=== PATIENT | female | born 1945 | race Caucasian/White ===

== ENCOUNTER → 2016-08-29 | Outpatient (CLI) | payer MEDICARE ==
[~2016-08-29] MED LIST: ALBUTEROL2.5 MG/0.5 INH; ALENDRONATE SOD70 MG PO; ALPHAGAN P 5 ML5 M1 OPH; ASPIRIN CHEWABL81 MG PO; ATIVAN0.5 MG PO; ATIVAN1 MG PO; ATORVASTATIN CA20 M1 PO; AUGMENTIN 875875 MG PO; AVPAK AZITHROM250 M1 PO; BETIMOL5 M1 OU; BISACODYL LAXATI5 MG PO; BREO ELLIPTA 21 EACH IH; BRIMONIDINE TAR10 ML OPH; BRIN10TA PO; CALCIUM CARBON500 M1 PO; CATAPRES T0.3 MG/24 TD; CHLORASEPTIC MM; CIPRO250 MG PO; CIPRO500 MG PO; CLINDAMYCIN150 MG PO; CLONIDINE HYDR0.1 MG PO; CLONIDINE0.2 MG PO; CYMBALTA30 MG PO; CYMBALTA60 MG PO; Clonidine HCl0.3 MG PO; DELTASONE20 M1 PO; DOLOPHINE5 MG PO; DOXYCYCLINE MO100 M1 PO; DULCOLAX100 MG PO; DULE1ARO INH; DULOXETINE HCL60 MG PO; DUONEB 3 MG/3 ML3 M1 INH; DUONEB 3 MG/3 ML3 M1 NEB; DUONEB 3ML 3 MG/3 ML INH; Duoneb 3ML 3 MG/3 ML INH; ENDOCET 650 MG-1 TA1 PO; EXELON9.5 MG/24 T; GABAPENTIN TAB600 MG PO; GABAPENTIN800 MG PO; GLIPIZIDE2.5 MG PO; HUMALOG100 U/ML SC; INCRUSE EL62.5 MCG/A IH; K-TAB10 MEQ PO; KLOR-CON 88 MEQ PO; LASIX20 MG PO; LEVAQUIN750 M1 PO; LEVAQUIN750 MG PO; LEVOFLOXAC750 MG/150 IV; LIPITOR40 MG PO; LORAZEPAM0.5 MG PO; LORAZEPAM1 MG PO; MAPAP325 MG PO; MILK OF MA400 MG/52 PO; MUCINEX600 MG PO; NEURONTIN600 MG PO; NUCYNTA ER100 M1 PO; OMEPRAZOLE20 M2 PO; OMEPRAZOLE20 MG PO; OMEPRAZOLE40 MG PO; OXYCODONE AND A1 TA3 PO; OXYCODONE20 MG PO; OXYGEN NAS; PAMELOR75 MG; PAMELOR75 MG PO; PERCOCET 325 MG1 TA6 PO; PERCOCET 325 MG1 TA7 PO; PERCOCET 325 MG1 TA8 PO; PREDNISONE10 MG PO; PRILOSEC20 M2 PO; PRILOSEC20 MG PO; PRILOSEC40 MG PO; PROAIR HFA0.09 MG/AC INH; RISPERDAL CONST25 MG IM; RISPERDAL0.5 MG PO; RISPERDAL1 M1 PO; RISPERDAL2 M1 PO; SANTYL250 U/GM T; SIMVASTATIN40 MG PO; SYMBICORT1 AE1 INH; TIMOLOL MALEAT2.5 M1 OPH; TOPAMAX15 M1 PO; TOPAMAX15 MG PO; TRAD5TAB1 PO; TRAVATAN 0.0042.5 M1 OU; TRAVATAN Z 2.52.5 ML OPH; TYLENOL325 M1 PO; VENTOLIN 02.5 MG/3 M INH; VENTOLIN H0.09 MG/AC INH; VIBRAMYCIN100 MG PO; VIT D; VITAMIN D22000 UNIT PO; VITAMIN D5000 I3 PO; VITAMIN D50000 I3 PO; Ventolin 02.5 MG/3 M INH; ZANTAC 150150 MG PO; ZITHROMAX Z PA250 MG PO; [UNRECOGNIZED DRUG - OTHER] PO
== END | disposition home or self-care (01) ==
LOC: LAB 16:30
DX: J41.1 Mucopurulent chronic bronchitis (principal); R07.81 Pleurodynia; R30.0 Dysuria; R68.89 Other general symptoms and signs; R06.02 Shortness of breath

== ENCOUNTER → 2016-09-02 | Outpatient (CLI) | payer MEDICARE ==
[2016-09-02 13:55] LABS: BILIRUBIN NEGATIVE (NEGATIVE); BLOOD NEGATIVE (NEGATIVE); CLARITY SL CLOUDY (CLEAR); COLOR YELLOW (YELLOW); GLUCOSE NEGATIVE (NEGATIVE); KETONE NEGATIVE (NEGATIVE); LEUKO ESTERASE 1+ (NEGATIVE); NITRITE NEGATIVE (NEGATIVE); PH 5.5 (5.0-9.0); PROTEIN NEGATIVE (NEGATIVE); UROBILINOGEN 0.2 E.U./dl (0.2-1.0)
== END | disposition home or self-care (01) ==
LOC: LAB 13:18
PROVIDERS: Family Medicine
DX: R30.0 Dysuria (principal); R68.89 Other general symptoms and signs

== ENCOUNTER 2017-02-07 17:26 | Inpatient (IN) | payer MEDICARE ==
[~2017-02-07] VITALS: Ht 170.2 cm; Wt 115.3 kg
--- NOTE | ~2017-02-07 | CON ---
[place], [place] REPORT OF CONSULTATION NAME: MERRY GARCIA UNIT #: [id number] ROOM: 526 DOCTOR: TOBIAS HANNAH MD BIRTHDATE: [birth year] DOS: 02/14/2017 PSYCHIATRIC CONSULTATION CHIEF COMPLAINT: "I'm so much better, thank you so much." SUMMARY OF THE VISIT: The patient was interviewed in her room. She greeted me with a smile and engaged readily in conversation, reporting that she no longer is experiencing the visual and auditory hallucinations that she had been upon admission. She was much more conversant and was able to be spontaneous and carry on a reasonable conversation, which is a eagle contrast to my earlier consult. The patient medically is much more stable, which has subsequently caused her psychiatric symptoms to resolve. She reports her only issue is occasionally having a bad dream that wakes her up, other than that she convincingly denies depression, psychosis or per. She also convincingly denies medication side effects. MENTAL STATUS: The patient is alert and oriented with mild time gaps. Mood does seem to be strongly trending towards euthymia. Affect is more appropriate. There is no per or hypomania. There are no overt auditory or visual hallucinations, delusions or paranoia. Short-term memory has mild gaps. FINAL DIAGNOSES: Major depression, recurrent with psychotic features. PLAN: I will make a small adjustment with her nighttime Seroquel, raising the dose from 50 to 100 mg at bedtime, maintain her other psychotropics. The patient is good to be discharged at this point and follow up in the office with one of the nurse practitioners. TOBIAS HANNAH MD CM:CONSTR:REPORT OF CONSULTATION [id number] 02/15/17 0635 interface
--- NOTE | ~2017-02-07 | CON ---
[place], [place] REPORT OF CONSULTATION NAME: MERRY GARCIA UNIT #: [id number] ROOM: 521 DOCTOR: TOBIAS HANNAH MD BIRTHDATE: [birth year] DOS: 02/09/2017 CHIEF COMPLAINT: "Oh, I'm so glad to see you." HISTORY OF PRESENT ILLNESS: This is a 71-year-old white female who is well known to me from my private practice in [place] as well as a previous psychiatric admission to the Behavioral Health Care Unit. She is admitted now due to COPD and increased shortness of breath as well as increased confusion. Per her report, she has noticed that she is also experiencing both auditory and visual hallucinations and has been progressively more confused. Her daughter who was present in the room endorses the same symptoms and states that she oftentimes will catch her mother having conversations with unforeseen others and that she at times talks completely out of her head. These behaviors have continued to get worse over the last several weeks. She also notices that she has become more disoriented and confused and is concerned for her decline. PAST MEDICAL HISTORY: Remarkable for chronic pain, COPD, diabetes, fibromyalgia, glaucoma, hypertension, hyperlipidemia, obesity, and vitamin D deficiency. MENTAL STATUS: She is alert and oriented to person, place, but not time. She reports to me that she has been in the hospital for 3 days. Some of her responses are very short, superficial and at times inappropriate. DIAGNOSIS: Major depression, recurrent; Alzheimer dementia. PLAN: I will check a serum ammonia level as well as a gabapentin level in the morning. I will start her on Exelon patch 4.6 mg daily. Given the prominent hallucinations, I will start her on Seroquel 50 mg at bedtime. She had previously been on Risperdal long-term, but developed significant tremor and extrapyramidal symptoms, so this was discontinued approximately 4-5 months ago. The Seroquel has a very low risk of extrapyramidal symptoms and tardive. She also endorses poor sleep, so this should also aid her sleep pattern. I did talk to family about the possibility of transferring her to the psychiatric unit if she quickly medically stabilizes and her hallucinations persist and they are both in agreement that this would be okay. TOBIAS HANNAH MD CM:CONSTR:REPORT OF CONSULTATION 1013 02/10/17 0317 interface
[~2017-02-07 17:26] MED LIST changes: +Bactroban Oint22 GM T
[2017-02-07 17:36] VITALS: BP 155/70
[2017-02-07 18:17] LABS: BASO # 0.1 10*3/uL (0.0-0.1); BASO % 1.5 % (0.0-1.0); EOS # 0.3 10*3/uL (0.0-0.4); HEMATOCRIT 38.6 % (37.0-47.0); HEMOGLOBIN 11.9 g/dl (12.0-16.0); LYMPH # 1.4 10*3/uL (1.3-4.4); LYMPH % 19.9 % (27.0-41.0); MEAN CELL VOLUME 88.9 fl (81.0-99.0); MEAN CORPUSCULAR HGB 27.4 pg (27.0-31.0); MEAN CORPUSCULAR HGB CONC 30.8 g/dl (33.0-37.0); MEAN PLATELET VOLUME 10.8 fl (9.6-12.3); MONO # 0.8 10*3/uL (0.1-1.0); MONO % 11.1 % (3.0-9.0); NEUT # 4.3 10*3/uL (2.3-7.9); NEUT % 62.5 % (47.0-73.0); PLATELET COUNT AUTOMATED 226 10*3/uL (130-400); RED BLOOD COUNT 4.34 10*6/uL (4.10-5.10); RED CELL DISTRI WIDTH 14.8 % (0-14.5); WHITE BLOOD COUNT 6.8 10*3/uL (4.8-10.8)
[2017-02-07 18:27] LABS: ACT PARTIAL THROMBO TIME 24.1 SECONDS (20.8-31.5); INTERNATIONAL NORM RATIO 0.9 (2.0-3.5)
[2017-02-07 18:32] LABS: ALBUMIN 3.7 gm/dl (3.1-4.5); ALKALINE PHOSPHATASE 121 U/L (45-117); BUN 8 mg/dl (7-24); CHLORIDE 103 mmol/L (98-107); CREATININE 1.02 mg/dL (0.55-1.02); LIPASE 97 U/L (73-393); MAGNESIUM 2.2 mg/dL (1.5-2.1); POTASSIUM 4.2 mmol/L (3.5-5.1); SGOT/AST 26 IU/L (3-35); SGPT/ALT 22 U/L (12-78); SODIUM 140 mmol/L (136-145); TOTAL PROTEIN 7.5 gm/dL (6.4-8.2)
[2017-02-07 18:33] LABS: TROPONIN I < 0.015 ng/ml (<0.045)
[2017-02-07 19:45] LABS: BILIRUBIN NEGATIVE (NEGATIVE); BLOOD NEGATIVE (NEGATIVE); CLARITY CLEAR (CLEAR); COLOR YELLOW (YELLOW); GLUCOSE NEGATIVE (NEGATIVE); KETONE NEGATIVE (NEGATIVE); LEUKO ESTERASE NEGATIVE (NEGATIVE); NITRITE NEGATIVE (NEGATIVE); PH 7.5 (5.0-9.0); UROBILINOGEN 0.2 E.U./dl (0.2-1.0)
[2017-02-07 19:52] LABS: BACTERIA 2+; EPITHELIAL CELLS 16-20; RBC 0-2 rbc/hpf (0-2)
[2017-02-07 20:39] VITALS: BP 179/62
[2017-02-07 21:17] VITALS: BP 158/58
--- NOTE | 2017-02-07 22:07 | NUR ---
ADVISED BY NURSE ANTITANK ASSAULT GUNNER TO WAIT TO GIVE REPORT UNTIL STAFFING NEEDS MET
[2017-02-07 23:09] VITALS: BP 151/73
[2017-02-07 23:52] VITALS: BP 185/86
--- NOTE | 2017-02-08 01:29 | NUR ---
REPORT GIVEN TO TORRIE SPRING
[2017-02-08 01:45] VITALS: BP 161/65
--- NOTE | 2017-02-08 01:45 | NUR ---
Time: 144 A 71 year old female admitted to 5E under services of JOSELIN ARIZMENDI DO. Pt. arrived via stretcher from ER. Chief complaint: confusion hallucinating... started last night , getting worse per family brought her to ER. pulse ox 88% on her home O2. cough productive yellow. c/o difficulty urinating last night. . Pt. voided on admission. bed changed. IV in left arm intact and asympt. WILLIAM DE LUNA
--- NOTE | 2017-02-08 02:29 | NUR ---
PT. DOES NOT KNOW ALL HER MEDICATIONS MEDICATION LIST NEEDS VERIFIED.
[2017-02-08 06:48] LABS: BASO % 0.3 % (0.0-1.0); EOS % 0.2 % (1.0-4.0); HEMATOCRIT 37.5 % (37.0-47.0); HEMOGLOBIN 11.7 g/dl (12.0-16.0); LYMPH # 0.7 10*3/uL (1.3-4.4); LYMPH % 11.9 % (27.0-41.0); MEAN CELL VOLUME 87.6 fl (81.0-99.0); MEAN CORPUSCULAR HGB 27.3 pg (27.0-31.0); MEAN CORPUSCULAR HGB CONC 31.2 g/dl (33.0-37.0); MEAN PLATELET VOLUME 11.2 fl (9.6-12.3); MONO # 0.1 10*3/uL (0.1-1.0); NEUT # 5.1 10*3/uL (2.3-7.9); NEUT % 85.6 % (47.0-73.0); PLATELET COUNT AUTOMATED 197 10*3/uL (130-400); RED BLOOD COUNT 4.28 10*6/uL (4.10-5.10); RED CELL DISTRI WIDTH 14.8 % (0-14.5)
[2017-02-08 07:18] LABS: ACT PARTIAL THROMBO TIME 24.1 SECONDS (20.8-31.5)
[2017-02-08 07:29] LABS: CHLORIDE 103 mmol/L (98-107); FREE T4 1.01 ng/dl (0.76-1.46); POTASSIUM 3.7 mmol/L (3.5-5.1); SODIUM 140 mmol/L (136-145)
[2017-02-08 07:42] LABS: ALBUMIN 3.7 gm/dl (3.1-4.5); ALKALINE PHOSPHATASE 118 U/L (45-117); BUN 9 mg/dl (7-24); CHOLESTEROL 214 mg/dL (<200); CREATININE 0.91 mg/dL (0.55-1.02); HDL CHOLESTEROL 82 mg/dl (40-60); LDL CHOLESTEROL 119 mg/dL (9-159); SGOT/AST 16 IU/L (3-35); SGPT/ALT 18 U/L (12-78); TOTAL PROTEIN 7.2 gm/dL (6.4-8.2); TRIGLYCERIDES 67 mg/dl (<150); VLDL CHOLESTEROL 13 mg/dL (6-40)
[2017-02-08 07:51] LABS: VITAMIN D, 25-HYDROXY 41.7 ng/mL (30-100)
[2017-02-08 08:00] VITALS: BP 154/59
--- NOTE | 2017-02-08 09:00 | NUR ---
case management visits with patient, patient states she lives at home with her daughter, but hasn't been getting around too well lately, discussed with her a short term [facility]p and patient wanted case management to talk with her daughter, corporate event planner will contact patient's daughter regarding discharge plans
--- NOTE | 2017-02-08 09:15 | NUR ---
MEDICATED WITH PRN PO NORCO FOR HEAD/CHEST/FEET/KNEES PAIN, STATES RIGHT LEG HURTS MORE THAN LEFT LEG; ALSO PRN PO ROBITUSSIN AC FOR NONPRODUCTIVE COUGH AND CHEST DISCOMFORT.
--- NOTE | 2017-02-08 10:16 | NUR ---
OBTAININING FAXED LIST OF MEDS FROM [facility].
--- NOTE | 2017-02-08 10:30 | NUR ---
PRN PO ROBITUSSIN AC AND NORCO SOMEWHAT EFFECTIVE, PER PATIENT.
--- NOTE | 2017-02-08 10:38 | NUR ---
DR. HANNAH NOTIFIED OF CONSULT RE: HALLUCINATIONS.
[2017-02-08] MEDS ORDERED: TRAD5TAB1 PO (10:46)
[2017-02-08] MEDS ORDERED: LIPITOR20 MG PO (10:46)
[2017-02-08] MEDS ORDERED: GLIPIZIDE XL2.5 M1 PO (10:46)
[2017-02-08] MEDS ORDERED: PERCOCET 10-321 EACH PO (10:47)
[2017-02-08] MEDS ORDERED: CYMBALTA30 MG PO (10:47)
[2017-02-08] MEDS ORDERED: NEURONTIN600 MG PO ×2 (10:48→10:49)
[2017-02-08] MEDS ORDERED: ATIVAN0.5 MG PO (10:48)
[2017-02-08] MEDS ORDERED: COREG3.125 MG PO (10:50)
[2017-02-08] MEDS ORDERED: OMEPRAZOLE40 MG PO (10:50)
[2017-02-08] MEDS ORDERED: CLONIDINE HCL0.1 MG PO (10:51)
[2017-02-08] MEDS ORDERED: ASPIRIN81 M1 PO (10:53)
[2017-02-08] MEDS ORDERED: BETIMOL5 M1 OU (10:53)
--- NOTE | 2017-02-08 10:54 | NUR ---
MED REC UPDATED/CORRECTED USING INFORMATION FAXED FROM [facility].
[2017-02-08 12:00] VITALS: BP 134/71
--- NOTE | 2017-02-08 12:30 | NUR ---
assistant media planner called and spoke with daughter. She stated she moved her mother in with them several months ago and has everything she needs in place to care for her. She would like her to return home upon discharge. Denies any other needs at this time
[2017-02-08 16:00] VITALS: BP 187/68
--- NOTE | 2017-02-08 18:20 | NUR ---
MEDICATED WITH PRN PO PERCOCET FOR C/O GENERALIZED BODY PAIN.
[2017-02-08 18:39] VITALS: BP 171/66
[2017-02-08 20:00] VITALS: BP 160/78
--- NOTE | 2017-02-08 21:15 | NUR ---
PATIENT REQUESTED AND RECEIVED PRN RESTORIL FOR C/O INSOMNIA. SHE IS LYING IN BED. ONLY C/O GEN PAIN WHICH SHE DID NOT WANT MEDICATED FOR. RESPIRATIONS EASY/REG. 02 DEP ON 3L NC. TUBI REPORTING COORDINATOR IN PLACE TO BLE. FLUIDS MAINTAINED PER ORDER. CALL LIGHT IS IN REACH.
[2017-02-09] VITALS: BP 157/69
--- NOTE | 2017-02-09 00:15 | NUR ---
PATIENT REQUESTED AND RECEIVED PRN ATIVAN ORDERED FOR C/O RESTLESSNESS.
--- NOTE | 2017-02-09 02:47 | NUR ---
SLEEPING. NO SXS OF DISTRESS. CALL LIGHT IN REACH.
[2017-02-09 04:00] VITALS: BP 110/74
[2017-02-09 08:00] VITALS: BP 161/80
[2017-02-09 12:00] VITALS: BP 144/48
[2017-02-09 16:00] VITALS: BP 136/70
[2017-02-09 20:00] VITALS: BP 155/85
--- NOTE | 2017-02-09 20:02 | NUR ---
Medicated with Percocet po prn for generalized body discomfort. Will monitor effectiveness. Call light within reach.
--- NOTE | 2017-02-09 21:00 | NUR ---
Patient resting quietly in bed with eyes closed. Percocet effective. Will continue to monitor. Call light within reach.
[2017-02-10] VITALS: BP 157/55
--- NOTE | 2017-02-10 00:29 | NUR ---
24 HR chart check completed.
[2017-02-10 08:00] VITALS: BP 160/78
[2017-02-10] MEDS ORDERED: CEFUROXIME AXE500 MG PO (09:44)
[2017-02-10] MEDS ORDERED: PREDNISONE10 MG PO (09:45)
--- NOTE | 2017-02-10 10:33 | NUR ---
SPOKE WITH U REGARDING BED FOR PT, THEY STATE THEY DON'T HAVE ANY FEMALE BEDS AVAILABLE AT THIS TIME. UPDATED DR SCHULER REGARDING THIS.
[2017-02-10 12:00] VITALS: BP 161/79
--- NOTE | 2017-02-10 15:06 | NUR ---
SPOKE WITH DR BARAKAT REGARDING NO BED AVAILABLE AT [facility], STATED D/C WILL BE ON HOLD UNTIL BED IS AVAILABLE.
--- NOTE | 2017-02-10 15:31 | NUR ---
DR BARAKAT NOTIFIED OF PT'S POSITIVE URINE CULTURE AND IT'S RESISTENT TO LEVAQUIN, QUESTIONED IF HE WANTED THE CEFUROXIME ORDERED AN IN PATIENT MED, STATED HE WOULD ORDER IT.
[2017-02-10 16:00] VITALS: BP 150/73
--- NOTE | 2017-02-10 17:03 | NUR ---
MEDICATED WITH PERCOCET PER PRN ORDER FOR GENERALIZED BODY ACHES. WILL MONITOR FOR EFFECTIVENESS.
--- NOTE | 2017-02-10 17:18 | NUR ---
SPOKE WITH DR HARINI PATRICK IV LEVAQUIN ORDER, IF HE WOULD LIKE PT TO REMAIN ON THAT WELL THE CEFTIN, STATES HE WILL D/C THE LEVAQUIN.
--- NOTE | 2017-02-10 18:36 | NUR ---
PT STATED PERCOCET WAS EFFECTIVE FOR PAIN RELIEF. PT RESTING COMFORTABLY.
--- NOTE | 2017-02-10 19:26 | NUR ---
SPOKE TO AT THIS TIME REGARDING ORDER FOR FLUIDS. INSTRUCTED TO DISCONTINUE FLUIDS.
[2017-02-10 20:00] VITALS: BP 156/89
--- NOTE | 2017-02-10 20:15 | NUR ---
PATIENT AWAKE IN BED AT THIS TIME. NO COMPLAINTS VOICED. WILL MONITOR. CALL LIGHT LEFT IN REACH.
[2017-02-11] VITALS: BP 120/60
--- NOTE | 2017-02-11 03:58 | NUR ---
PATIENT ASLEEP IN BED AT THIS TIME. RESPIRATIONS EASY. NO S/S OF DISTRESS NOTED. CALL LIGHT LEFT IN REACH.
[2017-02-11 08:00] VITALS: BP 160/70
--- NOTE | 2017-02-11 08:00 | NUR ---
SHIFT ASSESSMENT COMPLETED. BED IN LOW POSITION. CALL LIGHT WITHIN REACH. NO COMPLAINTS VOICED AT THIS TIME.
[2017-02-11] MEDS ORDERED: LEVAQUIN500 M2 PO (08:37)
--- NOTE | 2017-02-11 08:45 | NUR ---
Shift chart check completed.
[2017-02-11 12:00] VITALS: BP 154/90
--- NOTE | 2017-02-11 13:37 | NUR ---
ONE PERCOCET GIVEN PER PATIENT REQUEST FOR RIGHT SIDED PAIN RATING 10/10 AND FOR GENERALIZED PAIN.
--- NOTE | 2017-02-11 14:00 | NUR ---
PATIENT SLEEPING. NO SIGNS OF PAIN. PERCOCET EFFECTIVE.
[2017-02-11 16:00] VITALS: BP 186/64
[2017-02-11 20:00] VITALS: BP 150/82
--- NOTE | 2017-02-11 20:00 | NUR ---
ASSUMED CARE OF PATIENT. ASSESSMENT COMPLETE. RESTING IN BED. CALL LIGHT IN REACH. WILL CONTINUE TO MONITOR.
--- NOTE | 2017-02-11 20:59 | NUR ---
MEDICATED WITH PRN PERCOCET FOR C/O PAIN "ALL OVER" RATES 02/21.
[2017-02-12] VITALS: BP 151/78
--- NOTE | 2017-02-12 02:00 | NUR ---
SLEEPING. RESP EASY AND NONLABORED ON 2L NC. NO DISTRESS NOTED. CALL LIGHT IN REACH. WILL CONTINUE TO MONITOR.
[2017-02-12 07:00] LABS: HEMATOCRIT 34.8 % (37.0-47.0); LYMPH # 0.8 10*3/uL (1.3-4.4); LYMPH % 15.4 % (27.0-41.0); MEAN CELL VOLUME 85.9 fl (81.0-99.0); MEAN CORPUSCULAR HGB 27.2 pg (27.0-31.0); MEAN CORPUSCULAR HGB CONC 31.6 g/dl (33.0-37.0); MONO # 0.4 10*3/uL (0.1-1.0); MONO % 6.6 % (3.0-9.0); NEUT # 4.1 10*3/uL (2.3-7.9); NEUT % 77.1 % (47.0-73.0); PLATELET COUNT AUTOMATED 177 10*3/uL (130-400); RED BLOOD COUNT 4.05 10*6/uL (4.10-5.10); RED CELL DISTRI WIDTH 14.7 % (0-14.5); WHITE BLOOD COUNT 5.3 10*3/uL (4.8-10.8)
[2017-02-12 07:27] LABS: ALBUMIN 3.1 gm/dl (3.1-4.5); ALKALINE PHOSPHATASE 78 U/L (45-117); BUN 23 mg/dl (7-24); CHLORIDE 100 mmol/L (98-107); CREATININE 0.91 mg/dL (0.55-1.02); PHOSPHOROUS 3.5 mg/dL (2.5-4.9); POTASSIUM 3.7 mmol/L (3.5-5.1); SGOT/AST 9 IU/L (3-35); SGPT/ALT 20 U/L (12-78); SODIUM 138 mmol/L (136-145); TOTAL PROTEIN 6.2 gm/dL (6.4-8.2)
--- NOTE | 2017-02-12 07:29 | NUR ---
Shift chart check completed.
[2017-02-12 08:00] VITALS: BP 162/86
--- NOTE | 2017-02-12 08:00 | NUR ---
BED IN LOW POSITION. CALL LIGHT WITHIN REACH. VOICED NO CONCERNS AT THIS TIME.
[2017-02-12 12:00] VITALS: BP 164/88
--- NOTE | 2017-02-12 13:34 | NUR ---
NOTIFIED DAUGHTER OF ROOM CHANGE.
[2017-02-12 14:00] VITALS: BP 164/88
--- NOTE | 2017-02-12 17:44 | NUR ---
ONE PERCOCET GIVEN PER PATIENT REQUEST FOR LOWER BACK PAIN RATING A 10/10.
[2017-02-12 20:00] VITALS: BP 125/67
[2017-02-13] VITALS: BP 117/75
--- NOTE | 2017-02-13 02:00 | NUR ---
SLEEPING. RESP EASY AND NONLABORED ON 2.5L NC. NO DISTRESS NOTED. BED ALARM ON. CALL LIGHT IN REACH. WILL CONTINUE TO MONITOR.
[2017-02-13 08:00] VITALS: BP 152/74
[2017-02-13 12:00] VITALS: BP 132/66
--- NOTE | 2017-02-13 12:33 | NUR ---
PHYSICAL THERAPY PAtient evaluated on 5, full evaluation to follow. Continue with PT as per plan of care with fall, 02 and acute debility precautions. Family refuses SNF, will require home with 05/12 family assist and home health complete services. PAtient is modeate compleixyt via chart review, tests and evaaltuion: [id number] Thank you for this referral. Jeanne Golden,PT
--- NOTE | 2017-02-13 12:52 | NUR ---
Occupational Therapy evaluation completed on 5 with full eval to follow. PRecautions include fall risk, O2 dependency, WW use, SOB w/ ease of movement, anxiety, obesity, moderate complexity level 58058. Recommend OT per POC and home health OT,PT,SN upon d/c to enable improved ADL performance and max functional mobility. Thank you for this referral. Jasmin Silva OTR/l
[2017-02-13 16:00] VITALS: BP 198/81
--- NOTE | 2017-02-13 16:36 | NUR ---
PERCOCET FOR BILAT KNEE PAIN PT AAOX3, COOPERATIVE. MAKES OWN DECISIONS AND WILLING TO GO TO [facility]
[2017-02-13 17:00] VITALS: BP 160/76
--- NOTE | 2017-02-13 17:58 | NUR ---
PAIN PILL MODERATELY EFFECTIVE FOR KNEE PAIN RELIEF
[2017-02-13 20:00] VITALS: BP 151/88
--- NOTE | 2017-02-13 20:00 | NUR ---
ASSUMED CARE OF PATIENT. ASSESSMENT COMPLETE. RESTING IN BED. NO VOICED COMPLAINTS. CALL LIGHT IN REACH. BED ALARM ON. WILL CONTINUE TO MONITOR.
[2017-02-14] VITALS: BP 164/73
[2017-02-14 00:04] LABS: NEURONTIN (GABAPENTIN) 15.3 ug/mL (4.0-16.0)
--- NOTE | 2017-02-14 02:00 | NUR ---
SLEEPING. RESP EASY AND NONLABORED ON 2.5L NC. NO DISTRESS NOTED. BED ALARM ON. CALL LIGHT IN REACH. WILL CONTINUE TO MONITOR.
[2017-02-14 08:00] VITALS: BP 146/73
--- NOTE | 2017-02-14 08:00 | NUR ---
PATIENT RESTING WITH NO DISTRESS.
--- NOTE | 2017-02-14 10:00 | NUR ---
AM MEDS TAKEN.
--- NOTE | 2017-02-14 10:04 | NUR ---
PHYSICAL THERAPY Pt having breakfast this first therapy visit. ALEJANDRINA ECKERT PACKING LINE WORKER.
[2017-02-14 12:00] VITALS: BP 129/83
[2017-02-14] MEDS ORDERED: RIVASTIGMINE1 EACH T (12:23)
[2017-02-14] MEDS ORDERED: QUETIAPINE FUM100 M3 PO (12:23)
[2017-02-14] MEDS ORDERED: PREDNISONE10 MG PO (12:23)
--- NOTE | 2017-02-14 15:30 | NUR ---
HEP LOCK REMOVED FOR DISCHARGE. Discharge instructions reviewed with patient/family. Patient receptive and verbalizes understanding. Follow-up care arranged. Written instructions given to patient/family. SARAH MCFARLANE
--- NOTE | 2017-02-16 08:08 | NUR ---
PHYSICAL THERAPY CO-SIGN I approve of the Phyical Therapy notes written above. SERGO JASMINE PT
== END 2017-02-14 15:30 | disposition home or self-care (01) | DRG 871 ==
LOC: ED 17:26 → EDHOLD 20:29 → 5E 20:29 → ICCU 20:54 → 5E 22:03
PROVIDERS: Emergency Medicine; Hospitalist; Internal Medicine Hospice and Palliative Medicine; Psychiatry & Neurology Psychiatry; ADMIT Internal Medicine
DX: A41.9 Sepsis, unspecified organism (principal); J18.9 Pneumonia, unspecified organism; J96.21 Acute and chronic respiratory failure with hypoxia; J44.1 Chronic obstructive pulmonary disease with (acute) exacerbation; J44.0 Chronic obstructive pulmonary disease with (acute) lower respiratory infection; F33.3 Major depressive disorder, recurrent, severe with psychotic symptoms; I16.1 Hypertensive emergency; F02.80 Dementia in other diseases classified elsewhere, unspecified severity, without behavioral disturbance, psychotic disturbance, mood disturbance, and anxiety; B96.4 Proteus (mirabilis) (morganii) as the cause of diseases classified elsewhere; G30.9 Alzheimer's disease, unspecified; E78.00 Pure hypercholesterolemia, unspecified; M79.7 Fibromyalgia; G89.29 Other chronic pain; D64.9 Anemia, unspecified; F41.1 Generalized anxiety disorder; I10 Essential (primary) hypertension; E66.9 Obesity, unspecified; H40.9 Unspecified glaucoma; E55.9 Vitamin D deficiency, unspecified; E11.65 Type 2 diabetes mellitus with hyperglycemia; Z99.81 Dependence on supplemental oxygen; Z79.82 Long term (current) use of aspirin; Z79.899 Other long term (current) drug therapy; Z68.39 Body mass index [BMI] 39.0-39.9, adult; Z79.84 Long term (current) use of oral hypoglycemic drugs

== ENCOUNTER 2017-03-08 17:08 | Inpatient (IN) | payer MEDICARE ==
[~2017-03-08] VITALS: Ht 167.6 cm; Wt 93.1 kg
[~2017-03-08 17:08] MED LIST changes: +ASPIRIN81 M1 PO; +CEFUROXIME AXE500 MG PO; +CLONIDINE HCL0.1 MG PO; +COREG3.125 MG PO; +GLIPIZIDE XL2.5 M1 PO; +LEVAQUIN500 M2 PO; +LIPITOR20 MG PO; +PERCOCET 10-321 EACH PO; +QUETIAPINE FUM100 M3 PO; +RIVASTIGMINE1 EACH T
[2017-03-08 17:12] VITALS: BP 108/52
[2017-03-08 18:00] LABS: BASO % 0.7 % (0.0-1.0); EOS # 0.2 10*3/uL (0.0-0.4); EOS % 4.7 % (1.0-4.0); HEMATOCRIT 37.7 % (37.0-47.0); HEMOGLOBIN 11.3 g/dl (12.0-16.0); LYMPH # 1.6 10*3/uL (1.3-4.4); LYMPH % 35.2 % (27.0-41.0); MEAN CELL VOLUME 91.3 fl (81.0-99.0); MEAN CORPUSCULAR HGB 27.4 pg (27.0-31.0); MEAN PLATELET VOLUME 10.4 fl (9.6-12.3); MONO # 0.6 10*3/uL (0.1-1.0); MONO % 13.4 % (3.0-9.0); NEUT % 45.3 % (47.0-73.0); PLATELET COUNT AUTOMATED 172 10*3/uL (130-400); RED BLOOD COUNT 4.13 10*6/uL (4.10-5.10); RED CELL DISTRI WIDTH 15.9 % (0-14.5); WHITE BLOOD COUNT 4.5 10*3/uL (4.8-10.8)
[2017-03-08 18:20] LABS: ALBUMIN 3.3 gm/dl (3.1-4.5); ALKALINE PHOSPHATASE 108 U/L (45-117); BUN 10 mg/dl (7-24); CHLORIDE 99 mmol/L (98-107); CREATININE 0.98 mg/dL (0.55-1.02); POTASSIUM 3.8 mmol/L (3.5-5.1); SGOT/AST 23 IU/L (3-35); SGPT/ALT 31 U/L (12-78); SODIUM 141 mmol/L (136-145); TOTAL PROTEIN 6.9 gm/dL (6.4-8.2)
[2017-03-08 18:21] LABS: TROPONIN I < 0.015 ng/ml (<0.045)
--- NOTE | 2017-03-08 18:49 | NUR ---
PT RESTING QUIETLY WITH HER EYES CLOSED, DAUGHTER AT THE BEDSIDE. TOADOL EFFECTIVE.
[2017-03-08 19:02] LABS: BILIRUBIN NEGATIVE (NEGATIVE); BLOOD NEGATIVE (NEGATIVE); CLARITY SL CLOUDY (CLEAR); COLOR YELLOW (YELLOW); GLUCOSE NEGATIVE (NEGATIVE); KETONE NEGATIVE (NEGATIVE); LEUKO ESTERASE NEGATIVE (NEGATIVE); NITRITE NEGATIVE (NEGATIVE); PH 5.5 (5.0-9.0); SPECIFIC GRAVITY >= 1.030 (1.005-1.030); UROBILINOGEN 0.2 E.U./dl (0.2-1.0)
[2017-03-08 19:15] LABS: BACTERIA 2+; EPITHELIAL CELLS 25-30; WBC 21-30 wbc/hpf (0-5)
[2017-03-08 19:48] VITALS: BP 119/49
--- NOTE | 2017-03-08 19:56 | NUR ---
PATIENT ALERT AND ORIENTED STATES BREATHING BETTER AFTER BREATHING TX AND MEDS, IN LOW FOWLERS LUNGS WITH BILAT EXP WHEEZE
--- NOTE | 2017-03-08 20:35 | NUR ---
ADMITTING DR CARLOS VO TO HOLD LEVAQUIN IV UNTIL BLOOD CULTURES THAT HAVE JUST BEEN ORDERED ARE BACK,
--- NOTE | 2017-03-08 20:46 | NUR ---
PATIENT ADMITTED TO 5E PT DNRCC, PT ALERT AND ORIENTED AWAITING TO HAVE BLOOD CULTURES DRAWN BEFORE TRANSPORT TO
--- NOTE | 2017-03-08 20:55 | NUR ---
CALLED TO GIVE REPORT TO 4E, SAID THEY WOULD CALL BACK WITHIN 5 MIN
--- NOTE | 2017-03-08 21:05 | NUR ---
PATIENT REPORT GIVEN TO ANNELISE SPRING, PT NOW GOING TO CT BEFORE TRANSPORT TO
[2017-03-08 21:35] VITALS: BP 121/44
--- NOTE | 2017-03-08 21:35 | NUR ---
RN COULD NOT VALIDATE PT HOME MEDICATIONS AT THIS TIME BECAUSE THE PT WAS UNABLE TO IDENTIFY HOME MEDS.
--- NOTE | 2017-03-08 22:00 | NUR ---
BLADDERSCAN PT PER MD REQUEST WAS FOUND TO HAVE 160CC OF FLUID. STRAIGHT CATH PT PER MD REQUEST FOR UC. PT TOLERATED PROCEDURE WELL
[2017-03-08 22:17] LABS: BILIRUBIN NEGATIVE (NEGATIVE); BLOOD NEGATIVE (NEGATIVE); CLARITY CLEAR (CLEAR); COLOR YELLOW (YELLOW); GLUCOSE NEGATIVE (NEGATIVE); KETONE NEGATIVE (NEGATIVE); LEUKO ESTERASE NEGATIVE (NEGATIVE); NITRITE NEGATIVE (NEGATIVE); PH 5.5 (5.0-9.0); SPECIFIC GRAVITY >= 1.030 (1.005-1.030); UROBILINOGEN 0.2 E.U./dl (0.2-1.0)
[2017-03-08 22:30] LABS: BACTERIA 2+; WBC 0-2 wbc/hpf (0-5)
--- NOTE | 2017-03-08 22:49 | NUR ---
Time: 2134 A 71 year old FEMALE admitted to 4E under services of MEERA ISSA DO. Pt. arrived via CART from ED ER. Chief complaint: SHAKINESS, UNABLE TO URINATE. HALLUCINATIONS. GLADYS ARTEAGA
[2017-03-09] VITALS: BP 125/52
[2017-03-09 06:09] LABS: BASO % 0.2 % (0.0-1.0); EOS % 0.2 % (1.0-4.0); HEMATOCRIT 34.4 % (37.0-47.0); HEMOGLOBIN 10.9 g/dl (12.0-16.0); LYMPH # 0.6 10*3/uL (1.3-4.4); LYMPH % 12.6 % (27.0-41.0); MEAN CELL VOLUME 88.4 fl (81.0-99.0); MEAN CORPUSCULAR HGB CONC 31.7 g/dl (33.0-37.0); MEAN PLATELET VOLUME 10.5 fl (9.6-12.3); MONO # 0.1 10*3/uL (0.1-1.0); NEUT # 4.1 10*3/uL (2.3-7.9); NEUT % 85.2 % (47.0-73.0); NUCLEATED RED BLOOD CELL 0.4 % (0.0-0.0); PLATELET COUNT AUTOMATED 171 10*3/uL (130-400); RED BLOOD COUNT 3.89 10*6/uL (4.10-5.10); RED CELL DISTRI WIDTH 15.5 % (0-14.5); WHITE BLOOD COUNT 4.8 10*3/uL (4.8-10.8)
[2017-03-09 06:47] LABS: BUN 11 mg/dl (7-24); CHLORIDE 99 mmol/L (98-107); CREATININE 0.95 mg/dL (0.55-1.02); PHOSPHOROUS 2.5 mg/dL (2.5-4.9); SODIUM 138 mmol/L (136-145)
[2017-03-09 07:43] LABS: VITAMIN D, 25-HYDROXY 34.6 ng/mL (30-100)
[2017-03-09 08:00] VITALS: BP 131/83
--- NOTE | 2017-03-09 08:00 | NUR ---
ASSISTED TO BR WITH WALKER, 2 ASSIST. PT TOLERATED WELL. VOIDED & HAD A NORMAL COLORED BM. RETUNED TO CHAIR WITH BODYALARM IN USE FOR PT SAFETY. SEE SHIFT ASSESSMENT.
--- NOTE | 2017-03-09 09:00 | NUR ---
Stereotype Finisher in to talk to patient. Patient states lives at home with daughter. There are no steps in the home. Physician: rossy peñaloza [facility]acy: [facility] Home health services: none Patient's level of ADLs: MODERATE ASSIST Patient has working utilities: all working DME: walker Follow-up physician's appointment after d/c: will be made by [facility] nurse director upon discharge Does patient want to access PORTAL?: no Discharge plan discussed with patient patient lives at home with her daughter, states she hasn't been getting around very well, discussed with her a short term prison and patient was in agreement, patient wanted case management to also discuss this with her daughter, town planner will contact patient's daughter and see which facility to refer patient to. GRAY YAÑEZ
--- NOTE | 2017-03-09 10:58 | NUR ---
In to see patient to discuss discharge plans. Patient stated she is going home with her daughter. Called daughter Barbara and spoke with a "male" at the house who stated Barbara is at work right now and the plan is for this patient to return home. They have everything they need at home to care for her. Asked if patient will need any VNA, they stated no they didn't think so. Will follow
[2017-03-09 12:00] VITALS: BP 135/71
[2017-03-09] MEDS ORDERED: NEURONTIN600 MG PO (12:50)
--- NOTE | 2017-03-09 12:57 | NUR ---
HOME MEDICATIONS UPDATED WITH RAMON GONG, DR SMART MADE AWARE.
[2017-03-09 16:00] VITALS: BP 135/54
--- NOTE | 2017-03-09 16:42 | NUR ---
PHYSICAL THERAPY EVALUATION COMPLETED. PATIENT RESTING/SLEEPING UPON MY ARRIVAL BUT EASILY AROUSED. PATIENT NASAL CANULA AT HER LEFT EAR AND SHE WAS UNAWARE IT WAS NOT DONNED PROPERLY AND REQUIRED ASSISTANCE FOR PROPPER DONNING. BED MOBILITY LIGHT CGA/SBA; TRANSFERS IN/OUT OF BED LIGHT CGA/SBA. GAIT WITH WALKER AND CLOSE SBA X 20 WITH EXTREMELY SLOW SHERRY/PACE ALTHOUGH STEADY. CONSTANT GRUNTING TYPE NOISE. PATIENT DENIED PAIN AT ANY TIME DURING THIS SESSION. PATIENT HAS GENERALIZED WEAKNESS AND SOB WITH MINIMAL EXERSION WHICH LIMIT FUNCTIONAL MOBILITY. PATIENT WAS ID BY NAME AND . PATIENT IS ALERT; ORIENTED TO PERSON, PLACE, NOT TIME. PATIENT WOULD BENEFIT FROM SNF TO IMPROVE SAFE, FUNCTIONAL MOBILITY TO EVENETUALLY RETURN HOME WITH HER DAUGHTER. PATIENT REQUIRES 24/7 SUPERVISION D/T COGNITIVE DEFICITS. CONTINUE PT FOR GAIT, ENDUARNCE, BREATHING TECHNIQUES AND FUNCTIONAL MOBILITY TRAINING. MODERATE COMPLEXITY PT EVALUATION D/T LENGHTY PMH, CHAT REVIEW AND VIST TIME INCLUDING TESTING. THANK YOU FOR THIS REFERRAL, JUJU SIERRA, PT
--- NOTE | 2017-03-09 16:42 | NUR ---
MEDICATED PO ORDERED PER PT REQUEST WITH NORCO FOR C/O BILATERAL LEG PAIN. SEE EMAR. PT UNABLE TO RATE PAIN.
--- NOTE | 2017-03-09 17:26 | NUR ---
MEDICATED PO ORDERED PER PT REQUEST WITH ATIVAN FOR INCREASED ANXIETY. SEE EMAR.
--- NOTE | 2017-03-09 18:48 | NUR ---
PT STATES MEDICATION EFFECTIVE IN RELIEVING DISCOMFORT & ANXIETY. DOZING INTERMITTENTLY.
[2017-03-09 20:00] VITALS: BP 102/53
--- NOTE | 2017-03-09 22:00 | NUR ---
PT COMPLAINS OF BACK PAIN 5/10 MEDICATED WITH GOOD EFFECT SEE EMAR.
[2017-03-10] VITALS: BP 110/68
[2017-03-10 06:45] LABS: BASO % 0.1 % (0.0-1.0); HEMATOCRIT 31.8 % (37.0-47.0); LYMPH # 0.6 10*3/uL (1.3-4.4); LYMPH % 9.5 % (27.0-41.0); MEAN CELL VOLUME 87.4 fl (81.0-99.0); MEAN CORPUSCULAR HGB 27.5 pg (27.0-31.0); MEAN CORPUSCULAR HGB CONC 31.4 g/dl (33.0-37.0); MEAN PLATELET VOLUME 11.1 fl (9.6-12.3); MONO # 0.3 10*3/uL (0.1-1.0); MONO % 3.9 % (3.0-9.0); NEUT # 5.8 10*3/uL (2.3-7.9); NEUT % 85.8 % (47.0-73.0); PLATELET COUNT AUTOMATED 195 10*3/uL (130-400); RED BLOOD COUNT 3.64 10*6/uL (4.10-5.10); WHITE BLOOD COUNT 6.7 10*3/uL (4.8-10.8)
[2017-03-10 07:08] LABS: ALBUMIN 3.2 gm/dl (3.1-4.5); ALKALINE PHOSPHATASE 84 U/L (45-117); BUN 13 mg/dl (7-24); CHLORIDE 103 mmol/L (98-107); CREATININE 0.83 mg/dL (0.55-1.02); POTASSIUM 3.9 mmol/L (3.5-5.1); SGOT/AST 13 IU/L (3-35); SGPT/ALT 26 U/L (12-78); SODIUM 142 mmol/L (136-145); TOTAL PROTEIN 6.1 gm/dL (6.4-8.2)
[2017-03-10 08:00] VITALS: BP 123/76
--- NOTE | 2017-03-10 08:00 | NUR ---
SLEEPING, AROUSES EASILY WITH NO VOICED C/O OFFERED. EASY RESPIRATIONS WITH SKIN W/D. SEE SHIFT ASSESSMENT.
--- NOTE | 2017-03-10 09:00 | NUR ---
case management visits with patient, patient states she will be going home with family and denies any home needs
--- NOTE | 2017-03-10 11:00 | NUR ---
MEDICATED PO ORDERED PER PT REQUEST WITH NORCO 1 TAB FOR C/O BILATERAL LEG PAIN. PT RATES PAIN 5/10. SEE EMAR. PT OOB TO CHAIR, LEGS ELEVATED.
--- NOTE | 2017-03-10 11:53 | NUR ---
PHYSICAL THERAPY Pt was seen this AM 1:1 X 2 and sleeping sound will stop back later. ALEJANDRINA ECKERT LITHOGRAPHIC PROOFER.
--- NOTE | 2017-03-10 11:54 | NUR ---
PHYSICAL THERAPY Stopped back in to see Mrs Marquez and Pt was up in her bedside chair. Transfer sit/stand X 3, with MOD EXECUTIVE CYBER LEADER X 1, up on wheeled walker for standing balance, then gait forward and back to Pt's tolerance X 3, with 3 sitting rest. Pt on 3 L o2 and was starting to get SOB with this. Pt up in her bedside chair, call light, and body alarm on. ALEJANDRINA ECKERT SAMPLE STEAMER.
[2017-03-10 12:00] VITALS: BP 145/82
--- NOTE | 2017-03-10 12:00 | NUR ---
PT STATES MEDICATION EFFECTIVE IN RELIEVING DISCOMFORT. WILL CONTINUE TO MONITOR.
[2017-03-10 16:00] VITALS: BP 130/66
--- NOTE | 2017-03-10 16:42 | NUR ---
OOB TO CHAIR, DTR AT BEDSIDE.
--- NOTE | 2017-03-10 17:30 | NUR ---
NO HALLUCINATIONS NOTED THIS SHIFT.
--- NOTE | 2017-03-10 18:16 | NUR ---
medicated po as ordered per pt request with norco for c/o bilateral lower leg pain. pt rates pain 10/22. see emar.
[2017-03-10 20:00] VITALS: BP 109/58
[2017-03-11] VITALS: BP 124/69
[2017-03-11 08:00] VITALS: BP 148/84
--- NOTE | 2017-03-11 09:06 | NUR ---
PATIENT C/O BILATERAL LEG PAIN. RATES /. NORCO GIVEN PER ORDERS.
--- NOTE | 2017-03-11 10:00 | NUR ---
PATIENT REPORTS GOOD RESULTS WITH PRN
[2017-03-11 12:00] VITALS: BP 124/76
--- NOTE | 2017-03-11 14:32 | NUR ---
NO HALLUCINATIOS NOTED THIS SHIFT
--- NOTE | 2017-03-11 15:30 | NUR ---
ASSUMED CARE OF PT. AT THIS TIME. PT. IS RESTING COMFORTABLY IN CHAIR WITH CALL LIGHT WITHIN REACH AND BODY ALARM ATTACHED. NO S/S OF DISTRESS NOTED RESPERS ARE EASY AND REGULAR, SEE SHIFT ASSESSMENT.
[2017-03-11 16:00] VITALS: BP 139/76
--- NOTE | 2017-03-11 17:47 | NUR ---
PRN NORO GIVEN PER PT. REQUEST WITH C/O ABDOMINAL PAIN. WILL MONITOR EFFECT.
--- NOTE | 2017-03-11 18:10 | NUR ---
PRN NORCO SEEMS EFFECTIVE, PT. DOES NOT VERBALIZE ANY DISCOMFORT, RESPIRATIONS ARE EASY AND REGULAR WITH NO DISTRESS NOTED. WILL CONTINUE TO MONITOR.
[2017-03-11 20:00] VITALS: BP 130/70
[2017-03-12] VITALS: BP 149/79
[2017-03-12 08:00] VITALS: BP 182/80
--- NOTE | 2017-03-12 08:10 | NUR ---
PATIENT IS RESTING COMFORTABLY IN BED AND DRIFTS IN AND OUT OF SLEEP. PATIENT IS HARD OF HEARING, BUT RESPONDS APPROPRIATE TO QUESTIONS. PATIENT DENIES ANY DISCOMFORT OR PAIN AT THIS TIME. PATIENT HAS DYSPNEA ON EXERTION. PATIENT HAS NO FURTHER REQUESTS AT THIS. CALL LIGHT IS WITHIN REACH, BED ALARM IS ACTIVATED, SEE SHIFT ASSESSMENT.
[2017-03-12 12:00] VITALS: BP 160/70
--- NOTE | 2017-03-12 12:26 | NUR ---
PATIENT GIVEN NORCO PER PATIENT REQUEST FOR LEFT KNEE PAIN RATED A 10/10 THAT IS DESCRIBED SHARP AND UNBEARABLE. WILL CONTINUE TO MONITOR AND REASSESS.
--- NOTE | 2017-03-12 12:30 | NUR ---
PATIENT IS RESTING COMFORTABLY IN THE CHAIR. PATIENT HAS HAD NO FURTHER COMPLAINTS OF PAINT AND HAS REMAING AWAKE AND ALERT THROUGHOUT THE DAY. PATIENT IS NON-MONITOR AND HAS THE BODY ALARM ACTIVATED. SEE SHIFT ASSESSMENT. CALL LIGHT IS WITHIN REACH.
--- NOTE | 2017-03-12 13:21 | NUR ---
UPON REASSESSMENT OF LEFT LEG PAIN. PATIENT VERBALIZES THAT THE PAIN FEELS BETTER, BUT STILL RATES PAIN A 7/10. PATIENT HAS NO NON-VERBAL CUES OF PAIN AND IS SITTING IN THE CHAIR WITH LEGS ELEVATED. WILL CONTINUE TO MONITOR.
[2017-03-12 16:00] VITALS: BP 130/84
--- NOTE | 2017-03-12 17:48 | NUR ---
PT C/O BILATERAL LEG PAIN, RATES PAIN 20 PER PT ON SCALE 0-10. MEDICATED WITH NORCO PO PER PRN ORDER, SEE EMAR. CALL LIGHT IN REACH. PT SITTING UP IN RECLINER CHAIR.
--- NOTE | 2017-03-12 19:00 | NUR ---
PATIENT VERBALIZES A DECREASE IN PAIN A 4/10 AND DESCRIBES THE PAIN TOLERABLE. WILL CONTINUE TO MONITOR AND REASSESS
--- NOTE | 2017-03-12 19:01 | NUR ---
PATIENT IS RESTING IN BED. PATIENT VERBALIZES A DECREASE IN PAIN LEVEL RATE A 5/10 AND HAS NO FURTHER COMPLAINTS AT THIS TIME. PATIENT IS ABLE TO AMBULATE WITH WALKER AND ASSIST. PATIENT HAS CALL LIGHT WITHIN REACH. SEE SHIFT ASSESSMENT.
--- NOTE | 2017-03-12 19:30 | NUR ---
PT. IS RESTING COMFORTABLY IN BED AT THIS TIME. HOB IS ELEVATED, WHEELS LOCKED, NASAL CANNULA ATTACHED DELIVERING 3LPM, CALL LIGHT IN REACH. PT. HAS NO C/O OF DISTRESS AT THIS TIME. SEE SHIFT ASSESSMENT.
[2017-03-12 20:00] VITALS: BP 135/84
--- NOTE | 2017-03-12 22:05 | NUR ---
PRN NORCO AND RESTORIL GIVEN AT THIS TIME FOR PT. C/O LEG PAIN AND INSOMNIA. WILL MONITOR EFFECT.
--- NOTE | 2017-03-12 22:45 | NUR ---
PRN NORCO AND RESTORIL SEEM TO BE EFFECTIVE. PT. IS SLEEPING IN BED COMFORTABLY. NASAL CANNULA ATTACHED DELIVERING 3LNC, HOB ELEVATED WITH CALL LIGHT IN REACH. RESPERS ARE EASY AND REGULAR.
[2017-03-13] VITALS: BP 143/89
[2017-03-13 06:25] LABS: HEMATOCRIT 34.8 % (37.0-47.0); HEMOGLOBIN 10.9 g/dl (12.0-16.0); MEAN CELL VOLUME 87.9 fl (81.0-99.0); MEAN CORPUSCULAR HGB 27.5 pg (27.0-31.0); MEAN CORPUSCULAR HGB CONC 31.3 g/dl (33.0-37.0); MEAN PLATELET VOLUME 10.9 fl (9.6-12.3); NUCLEATED RED BLOOD CELL 0.1 10*3/uL (0.0-0.0); NUCLEATED RED BLOOD CELL 0.8 % (0.0-0.0); PLATELET COUNT AUTOMATED 185 10*3/uL (130-400); RED BLOOD COUNT 3.96 10*6/uL (4.10-5.10); RED CELL DISTRI WIDTH 15.9 % (0-14.5); WHITE BLOOD COUNT 7.1 10*3/uL (4.8-10.8)
[2017-03-13 06:50] LABS: CREATININE 0.97 mg/dL (0.55-1.02)
[2017-03-13 07:14] LABS: PLATELET SUFFICIENCY NORMAL (NORMAL); TOTAL CELLS COUNTED 100 #CELLS
[2017-03-13 08:00] VITALS: BP 156/82
--- NOTE | 2017-03-13 08:00 | NUR ---
PATIENT IS UP IN THE CHAIR, HAD ONE EPISODE OF SOB WHEN AMBULATING TO RESTROOM USING WALKER. PATIENT IS RECEIVING 2LPM VIA NC AND HAS NO DYSPNEA AT REST. PATIENT HAS REN HOSE APPLIED AND DENIES ANY PAIN AT THIS TIME, BUT HAS SORENESS IN HER KNEES. PATIENT WAS PLEASANT UPON ASSESSMENT AND GAVE APPROPRIATE RESPONSES TO QUESTIONS. CALL LIGHT IS WITHIN REACH, SEE SHIFT ASSESSMENT.
--- NOTE | 2017-03-13 09:58 | NUR ---
PHYSICAL THERAPY Pavan seen this AM 1:1 for her therapy session and doing better then monday. Pt on 2 L o2, transfer supine/sit MIN A X 1, sitting balance CG X 1, X 4 min, no LOB. Sit/stand and up on wheeled walker standing balance MOD A X 1, one sitting rest on her bed. Followed by gait with wheeled walker 13' X 3, with sitting rest after each gait with W/W and MOD A X 1, verbal cueing for gait, walker safety and turns with getting a little SOB after each gait and needing her sitting rest. Pt up in her bedside chair body alarm on, call light and phone. ALEJANDRINA ECKERT CAR WASH MANAGER.
--- NOTE | 2017-03-13 10:42 | NUR ---
patient was given tylenol per pt request for knee pain and stiffness.
--- NOTE | 2017-03-13 11:02 | NUR ---
Called and spoke with patients daughterBarbara regarding home health. She stated patient has had [facility] in the past and would like to have that set up after discharge. will need new order for nurse/PT prior to discharge. [facility] [phone]
[2017-03-13 12:00] VITALS: BP 147/78
--- NOTE | 2017-03-13 12:16 | NUR ---
TYLENOL PRN WAS EFFECTIVE WITH A REDUCED PAIN LEVEL OF 4/10. WILL CONTINUE TO MONITOR PATIENT.
--- NOTE | 2017-03-13 13:21 | NUR ---
PATIENT IS IN THE BEDSIDE CHAIR. PATIENT HAS BEEN ABLE TO AMBULATE WITH USE OF WALKER AROUND THE ROOM WITHOUT DISTRESS. PATIENT DENIES ANY SEVERE PAIN AT THE TIME. PATIENT IS CHICKEN RANCH AND NEEDS REINFORCEMENT AND CLARIFICATION ON INSTRUCTIONS. SEE SHIFT ASSESSMENT.
[2017-03-13] MEDS ORDERED: PREDNISONE10 MG PO (13:50)
[2017-03-13] MEDS ORDERED: AMINOPHYLLIN200 MG PO (13:50)
[2017-03-13] MEDS ORDERED: ZITHROMAX250 MG PO (13:52)
--- NOTE | 2017-03-13 14:30 | NUR ---
Discharge instructions reviewed with patient/family. Patient receptive and verbalizes understanding. Follow-up care arranged WITH PCP IN 7 DAYS. Written instructions given to patient/family. AL MEDEROS
--- NOTE | 2017-03-13 14:37 | NUR ---
Patient is being discharged to home with home health services requested from [facility]. Received order, contacted agency and faxed referral.
--- NOTE | 2017-03-13 16:00 | NUR ---
ESCORTED OFF THE FLOOR VIA WHEELCHAIR WITH FAMILY AT HER SIDE.
--- NOTE | 2017-03-14 07:53 | NUR ---
PHYSICAL THERAPY CO-SIGN I approve of the Phyical Therapy notes written above. SERGO JASMINE PT
== END 2017-03-13 16:00 | disposition home health service (06) | DRG 189 ==
LOC: ED 17:08 → EDHOLD 20:28 → 4E 20:28
PROVIDERS: Emergency Medicine; Nurse Practitioner; Student in an Organized Health Care Education/Training Program; ADMIT Internal Medicine
DX: J96.21 Acute and chronic respiratory failure with hypoxia (principal); G93.41 Metabolic encephalopathy; I95.9 Hypotension, unspecified; E87.2 Acidosis; E11.8 Type 2 diabetes mellitus with unspecified complications; E44.1 Mild protein-calorie malnutrition; F03.90 Unspecified dementia, unspecified severity, without behavioral disturbance, psychotic disturbance, mood disturbance, and anxiety; Z99.81 Dependence on supplemental oxygen; N39.0 Urinary tract infection, site not specified; F33.9 Major depressive disorder, recurrent, unspecified; J44.1 Chronic obstructive pulmonary disease with (acute) exacerbation; I10 Essential (primary) hypertension; M79.7 Fibromyalgia; K21.9 Gastro-esophageal reflux disease without esophagitis; G89.29 Other chronic pain; E66.9 Obesity, unspecified; F41.9 Anxiety disorder, unspecified; H40.9 Unspecified glaucoma; E78.00 Pure hypercholesterolemia, unspecified; B96.4 Proteus (mirabilis) (morganii) as the cause of diseases classified elsewhere; Z51.5 Encounter for palliative care; Z66 Do not resuscitate; Z87.891 Personal history of nicotine dependence; Z87.440 Personal history of urinary (tract) infections; Z79.82 Long term (current) use of aspirin; Z79.899 Other long term (current) drug therapy; Z68.33 Body mass index [BMI] 33.0-33.9, adult

== ENCOUNTER 2017-04-09 17:19 | Inpatient (IN) | payer MEDICARE ==
[~2017-04-09] VITALS: Ht 167.6 cm; Wt 114.3 kg
--- NOTE | ~2017-04-09 | PR ---
[place], [place] PROGRESS NOTE NAME: MERRY GARCIA UNIT #: [id number] ROOM: 421 DOCTOR: ARSENIO WILLIAMSON MD BIRTHDATE: [birth year] DOS: 04/12/2017 The patient was seen today [id number] encounter. History was confirmed. Physical examination performed. All the available labs were reviewed. Assessed the management the patient for today's visit were personally completed. Note done by the medical advisor was approved. The patient has been comfortably sitting on the chair this morning and noted reduction in symptoms of shortness bed using oxygen supplementation nasal cannula. Mild cough was noted without any sputum expectoration. Denies any wheezing. OBJECTIVE: VITAL SIGNS: Essentially noted normal except blood pressure 158/84. Pulse oxygen saturation on 2 liter nasal cannula was recorded 94% saturation. Intake of 13 and 40 mL, output not documented. LUNGS: Noted with decreased breath sounds in the lungs. Occasional wheezing, no crackles. ABDOMEN: Soft, nontender. EXTREMITIES: Noted reduction of the edema. LABORATORY DATA: CBC: Mild anemia with normal WBC count, otherwise normal. BMP: Glucose 257. Remaining labs were normal. Blood culture from shows no bacterial growth, preliminary at the present time. IMPRESSION: 1. The patient who has been currently noted with general weakness and fatigue with acute exacerbation of chronic obstructive pulmonary disease and bronchial asthma and acute bronchitis, resolving with the treatment. 2. Possibility of superimposed congestive heart failure, diastolic dysfunction. 3. Chronic debility with current acute worsening. PLAN OF MANAGEMENT: Recommended physical therapy and occupational therapy. No other changes in the medical management, plan of treatment with continued to titrate oxygen 92% or greater. Continue current dose of corticosteroids. Usual care, other supportive therapy, plan of management and treatments. [place], [place] PROGRESS NOTE NAME: TACOS GARCIAElisa Jana UNIT #: [id number] ROOM: 421 DOCTOR: ARSENIO WILLIAMSON MD BIRTHDATE: [birth year] ARSENIO ANDERSON MD CM:PNTRANS [id number] ARSENIO WIGGINS MD 04/13/17 0929 interface
--- NOTE | ~2017-04-09 | CON ---
[place], [place] REPORT OF CONSULTATION [id number] UN[facility] #: [id number] ROOM: 421 DOCTOR: ARSENIO WILLIAMSON MD BIRTHDATE: [birth year] DOS: 04/11/2017 PULMONARY CONSULTATION EVALUATION AND MANAGEMENT REASON FOR CONSULTATION: Assess the patient with confusion with acute exacerbation of COPD and others. HISTORY OF PRESENT ILLNESS: This is a 71-year-old white female known with past history of chronic hypoxic respiratory failure, COPD, presented to the hospital as she developed symptoms of increased coughing for the last day or two. She also reported symptoms of shortness of breath. The patient has been brought to the hospital by the patient's daughter. She was also noted with confusional status and hallucinations, which are described intermittently for the past few months. She has been noted with significant past psychiatric history treated with different medications. This morning as the patient was seen, she has been sitting on the chair. She stated her extremities have been swollen and complaining of shortness of breath with cough, but there was no sputum expectoration. Cough is described with mild to moderate frequency with some wheezing. There was no chest pain reported. REVIEW OF SYSTEMS: CONSTITUTIONAL: Somewhat limited; however, the patient reports symptoms of fatigue. Denies any symptoms of fever or chills or change in appetite. EYES: Denies any burning, redness, tenderness. EARS, NOSE, THROAT SYMPTOMS: No sore throat, hoarseness, otalgia, postnasal drainage. Denies any epistaxis. CARDIOVASCULAR: Denies anginal pain, edema or pain of the lower extremity. GASTROINTESTINAL: Denies dysphagia, nausea, vomiting, diarrhea, abdominal pain, hematemesis, melena, hematochezia. MUSCULOSKELETAL: The patient did not report any pain in any joints or redness or tenderness. SKIN: No lesions or rashes. CENTRAL NERVOUS SYSTEM: Denies symptoms of dizziness, headache, diplopia, syncopal episodes. Remaining systems were reviewed. They were noted all negative. PAST MEDICAL HISTORY: Reviewed with the patient last hospitalization on 03/08/2017, treated under the care of hospitalist service, then discharged home on 03/13/2017. She was treated for acute on chronic hypoxic respiratory failure with exacerbation of chronic obstructive pulmonary disease. 1. Centrilobular emphysema. 2. Uncomplicated severe persistent bronchial asthma. 3. Chronic hypoxic respiratory failure, use of oxygen supplementation 2 liters at exertion and sleep. 4. Obstructive sleep apnea disorder. 5. Fibromyalgia. 6. Chronic obesity. 7. Hypercholesterolemia. 8. Essential hypertension. [place], [place] REPORT OF CONSULTATION NAME: MERRY GARCIA UNIT #: [id number] ROOM: 421 DOCTOR: JUSTIN WIGGINS MD,ARSENIO BIRTHDATE: [birth year] 9. Major depression. 10. Alzheimer's disease and dementia. PAST SURGICAL HISTORY: 1. Cholecystectomy. 2. Bladder neck suspension. 3. Removal of stapes of the left ear. 4. Therapeutic bronchoscopy, which was done in 2016. SOCIAL HISTORY: The patient is , has 3 children. Denies any history of alcohol or illicit drug use. She has been noted with tobacco use from age of [age] years old, a pack of cigarettes per day until 2004. There was no history of occupation related pulmonary exposure. FAMILY HISTORY: Father passed at the age of 8080 years old with complication of myocardial infarction. Mother at the age of 8080 years old from complication of an old age. MEDICATIONS: The current administered medication were noted as use of Solu-Medrol 40 mg IV b.i.d., timolol eye drops, Seroquel, Lipitor, vitamin E, clonidine, Coreg, Cymbalta, duloxetine, Trajenta, aspirin, Lovenox for DVT prophylaxis, glipizide, gabapentin, omeprazole, Mucinex, Zithromax and Rocephin. DRUG ALLERGIES: Noted for no known drug allergies. PHYSICAL EXAMINATION: GENERAL: A 71-year-old female who has been currently noted awake and alert for this patient sitting on the chair without any acute distress. Her height was recorded by the nursing staff as height of 5 feet 6 inches, weight of 252 pounds, BMI 40.6. VITAL SIGNS: Normal temperature, respiratory rate recorded as 16-24, heart rate 60-108, blood pressure 142/85-121/71. HEENT: Atraumatic. Eye nonicterus. Severely reduced posterior pharyngeal space. JVD was not elevated. CARDIOVASCULAR: S1, S2 audible without any added sounds. LUNGS: Noted generalized reduced breath sounds bilaterally with expiratory wheezing. No crackles were heard. ABDOMEN: Soft and obese. EXTREMITIES: Shows 1-2+ pitting edema. Currently, has elastic stockings in place. CENTRAL NERVOUS SYSTEM: No gross focal deficit. Cranial nerves 2-12 intact. MUSCULOSKELETAL: No visible deformity. SKIN: The patient does not show any lesions or rashes. LABORATORY DATA: CBC 04/09/2017 on admission, WBC count 3.6, hemoglobin 11.4, hematocrit 35.9, platelet count normal. The lactic acid is 2.6, subsequent is 2.3 on 04/09/2017. CMP of the patient of 04/09/2017, glucose 194, CO2 of 34, remaining electrolytes normal. PT/PTT of the patient on 04/10/2017 was normal. CMP of the patient on 04/10/2017, normal. Urine culture for the patient, no bacterial growth. CBC of the patient of 04/11/2017, mild anemia with normal WBC [place], [place] REPORT OF CONSULTATION NAME: MERRY GARCIA UNIT #: [id number] ROOM: 421 DOCTOR: JUSTIN WIGGINS MDARSENIO BIRTHDATE: [birth year] count at that time. BMP, glucose 236, remaining BMP was normal this morning. Blood culture from 04/09/2017 preliminary, no bacterial growth reported. Final culture results were pending. The chest x-ray of the patient one-view that was done in the Emergency Room on admission was essentially noted clear for any acute pulmonary infiltration, hyperinflation changes of COPD were suspected. IMPRESSION: 1. The patient will be currently admitted to the hospital. The patient at this time was noted with generalized weakness, fatigue with hallucination and acute exacerbation of chronic obstructive pulmonary disease and bronchial asthma with acute bronchitis very likely. 2. Edema of the lower extremities, possibly congestive heart failure, diastolic dysfunction of the patient as well. 3. Chronic obesity with obstructive sleep apnea disorder as well. 4. Type 2 diabetes mellitus, hyperglycemia related to the use of the corticosteroids. PLAN OF MANAGEMENT: The patient will be continued on the bronchodilators and oxygen supplementation. Medical management of hyperglycemia, type 2 diabetes mellitus will be continued. Continue DVT prophylaxis. Continue bronchodilators. No changes in the antibiotic for the patient were recommended. With further progression of the illness certain changes in the medical management will be ordered accordingly. In the meantime, other supportive therapy, plan of management to be continued as well. Usual care. Thanks for allowing me to participate in the care of this patient. ARSENIO ANDERSON MD CM:CONSTR:REPORT OF CONSULTATION 1341 04/12/17 0636 interface
--- NOTE | ~2017-04-09 | PR ---
[place], [place] PROGRESS NOTE NAME: MERRY GARCIA UNIT #: [id number] ROOM: 421 DOCTOR: MAC HODGSON DO BIRTHDATE: [birth year] DOS: 04/12/2017 This progress note is to be attached to the one done by Dr. Anderson. SUBJECTIVE: The patient was evaluated today. She is awake and responsive. She was requesting discharge stating that she feels good enough to go home today, stated that her breathing has significantly improved and she was very opposed to staying at the hospital as she did not have to be. The patient denied any chest pain, nausea, vomiting, diarrhea or any of her symptoms. OBJECTIVE: VITAL SIGNS: Temperature 97.3, pulse 89, respiratory rate 20, blood pressure 125/75, bedside pulse oximetry 94% on 2 liters nasal cannula. GENERAL: The patient is awake, alert, oriented, in no acute distress. HEART: Regular rate and rhythm, no murmurs. PULMONARY: Diminished breath sounds bilaterally, but no acute crackles. ABDOMEN: Soft, nontender, nondistended. EXTREMITIES: No edema, erythema, ulcerations. NEUROLOGIC: No acute neuro deficits. SKIN: No new ulcerations or lesions. IMPRESSION AND PLAN: 1. Exacerbation of chronic obstructive pulmonary disease. 2. Metabolic encephalopathy. 3. Chronic hypertension, chronic anxiety, chronic fibromyalgia, vitamin D deficiency, diabetes, obesity, major depression. PLAN OF CARE: The patient's chronic obstructive pulmonary disease is being treated with azithromycin and Rocephin. She has improved and is requesting discharge. This can be done today if okay with the primary team. The patient is to follow up with Dr. Anderson on outpatient basis. Otherwise, continue with DuoNeb, prednisone taper and with azithromycin upon discharge. For any further details or questions, please see Dr. Anderson's note. MAC HODGSON DO [place], [place] PROGRESS NOTE NAME: MERRY GARCIA UNIT #: [id number] ROOM: 421 DOCTOR: MAC HODGSON DO BIRTHDATE: [birth year] ARSENIO ANDERSON MD CM:PNANAHI [id number] MAC HODGSON DO 04/13/17 0433 interface
[~2017-04-09 17:19] MED LIST changes: +AMINOPHYLLIN200 MG PO; +ZITHROMAX250 MG PO
[2017-04-09 17:24] VITALS: BP 104/64
[2017-04-09 18:05] LABS: BILIRUBIN NEGATIVE (NEGATIVE); BLOOD NEGATIVE (NEGATIVE); CLARITY SL CLOUDY (CLEAR); COLOR YELLOW (YELLOW); GLUCOSE NEGATIVE (NEGATIVE); KETONE NEGATIVE (NEGATIVE); LEUKO ESTERASE NEGATIVE (NEGATIVE); NITRITE NEGATIVE (NEGATIVE); PH 5.5 (5.0-9.0); UROBILINOGEN 0.2 E.U./dl (0.2-1.0)
[2017-04-09 18:15] LABS: BACTERIA 2+; RBC 0-2 rbc/hpf (0-2)
[2017-04-09 18:28] LABS: BASO % 0.8 % (0.0-1.0); EOS # 0.2 10*3/uL (0.0-0.4); EOS % 4.3 % (1.0-4.0); HEMATOCRIT 35.9 % (37.0-47.0); HEMOGLOBIN 11.4 g/dl (12.0-16.0); LYMPH # 1.6 10*3/uL (1.3-4.4); LYMPH % 42.7 % (27.0-41.0); MEAN CELL VOLUME 94.2 fl (81.0-99.0); MEAN CORPUSCULAR HGB 29.9 pg (27.0-31.0); MEAN CORPUSCULAR HGB CONC 31.8 g/dl (33.0-37.0); MEAN PLATELET VOLUME 10.6 fl (9.6-12.3); MONO # 0.5 10*3/uL (0.1-1.0); MONO % 13.2 % (3.0-9.0); NEUT # 1.4 10*3/uL (2.3-7.9); NEUT % 37.7 % (47.0-73.0); PLATELET COUNT AUTOMATED 193 10*3/uL (130-400); RED BLOOD COUNT 3.81 10*6/uL (4.10-5.10); RED CELL DISTRI WIDTH 17.8 % (0-14.5); WHITE BLOOD COUNT 3.7 10*3/uL (4.8-10.8)
[2017-04-09 18:43] LABS: ALBUMIN 3.5 gm/dl (3.1-4.5); ALKALINE PHOSPHATASE 111 U/L (45-117); BUN 7 mg/dl (7-24); CHLORIDE 103 mmol/L (98-107); LIPASE 54 U/L (73-393); POTASSIUM 3.6 mmol/L (3.5-5.1); SGOT/AST 30 IU/L (3-35); SGPT/ALT 52 U/L (12-78); SODIUM 144 mmol/L (136-145)
[2017-04-09 18:44] LABS: TROPONIN I < 0.015 ng/ml (<0.045)
[2017-04-09 18:47] LABS: ACT PARTIAL THROMBO TIME 22.9 SECONDS (20.8-31.5); INTERNATIONAL NORM RATIO 0.9 (2.0-3.5)
[2017-04-09 20:15] VITALS: BP 110/69
--- NOTE | 2017-04-09 20:15 | NUR ---
Time: 2014 A 71 year old FEMALE admitted to 4E under services of DALE SAHNI DO, Pt. arrived via stretcher from ER. Chief complaint: CAME IN WITH C/O SOB AND UTI S/S . ALEJANDRA BLOUNT
--- NOTE | 2017-04-09 20:45 | NUR ---
REVIEWED MED LIST WITH DRT ON PHONE AND UPDATED MED REC.
--- NOTE | 2017-04-09 20:45 | NUR ---
DR. HODGSON NOTIFIED OF CRITICAL LA LEVEL OF 2.4.
[2017-04-09] MEDS ORDERED: MULTI-VITAMIN1 EACH PO (21:14)
[2017-04-09] MEDS ORDERED: VITAMIN E400 UNI3 PO (21:16)
--- NOTE | 2017-04-09 23:49 | NUR ---
DR. HODGSON NOTIFIED OF CRITICAL LACTIC ACID OF 2.3.
[2017-04-10] VITALS: BP 99/65
[2017-04-10 06:20] LABS: BASO % 0.5 % (0.0-1.0); EOS # 0.2 10*3/uL (0.0-0.4); EOS % 3.8 % (1.0-4.0); HEMATOCRIT 30.3 % (37.0-47.0); HEMOGLOBIN 9.4 g/dl (12.0-16.0); LYMPH # 1.9 10*3/uL (1.3-4.4); LYMPH % 45.6 % (27.0-41.0); MEAN CELL VOLUME 93.8 fl (81.0-99.0); MEAN CORPUSCULAR HGB 29.1 pg (27.0-31.0); MEAN PLATELET VOLUME 10.3 fl (9.6-12.3); MONO # 0.5 10*3/uL (0.1-1.0); MONO % 11.6 % (3.0-9.0); NEUT # 1.6 10*3/uL (2.3-7.9); NEUT % 37.5 % (47.0-73.0); PLATELET COUNT AUTOMATED 162 10*3/uL (130-400); RED BLOOD COUNT 3.23 10*6/uL (4.10-5.10); RED CELL DISTRI WIDTH 17.9 % (0-14.5); WHITE BLOOD COUNT 4.2 10*3/uL (4.8-10.8)
[2017-04-10 06:41] LABS: CHLORIDE 107 mmol/L (98-107); POTASSIUM 3.2 mmol/L (3.5-5.1); SODIUM 142 mmol/L (136-145)
[2017-04-10 06:50] LABS: ACT PARTIAL THROMBO TIME 23.4 SECONDS (20.8-31.5); ALBUMIN 2.8 gm/dl (3.1-4.5); ALKALINE PHOSPHATASE 89 U/L (45-117); BUN 8 mg/dl (7-24); CREATININE 0.67 mg/dL (0.55-1.02); SGOT/AST 17 IU/L (3-35); SGPT/ALT 37 U/L (12-78); TOTAL PROTEIN 5.8 gm/dL (6.4-8.2)
[2017-04-10 08:00] VITALS: BP 96/50
--- NOTE | 2017-04-10 10:33 | NUR ---
[place] Administrator in to talk to patient. Patient states lives with daughter. There are 0 steps in the home. Physician: Amparo Adair Pharmacy: [facility] Home health services: none Patient's level of ADLs: MODERATE ASSIST Patient has working utilities: yes DME: walker, portable oxygen Follow-up physician's appointment after d/c: will be made by hospitalist nurse director upon discharge Does patient want to access PORTAL?: no Discharge plan will have kit planner/social science professor follow-up with daughter. Patient used [facility] previously. TREVA GILMAN
--- NOTE | 2017-04-10 10:37 | NUR ---
DR. ANDERSON NOTIFIED OF CONSULT RE: COPD.
--- NOTE | 2017-04-10 11:24 | NUR ---
Called patients daughter, holly who was at work but spoke with holly's , Giovanni. He stated patient lives with them and she will return there upon discharge. She is currently active with [facility] health nursing and PT. Will need a resume home health order prior to discharge.
[2017-04-10 12:00] VITALS: BP 154/77
[2017-04-10 16:00] VITALS: BP 143/85
--- NOTE | 2017-04-10 17:17 | NUR ---
MEDICATED WITH PRN PO PERCOCET FOR C/O BILATERAL LEGS PAIN.
--- NOTE | 2017-04-10 18:31 | NUR ---
PRN PO PERCOCET EFFECTIVE, PER PATIENT.
--- NOTE | 2017-04-10 19:43 | NUR ---
PT IN BED, LYING ON HER BACK RESTING COMFORTABLY. BILAT LOWER LUNG BASES ARE NOTED WITH CRACKLES. BLE HAVE 3+ PITTING EDEMA, PALE, AND SHINY. PT IS PLEASANT AND COOPERATIVE AT THIS TIME. IV SITE IS ASYM AND LOCKED WITH NO COMPLAINTS. PT CURRENTLY HAS 2L VIA NC GOING. GENERALIZED WEAKNESS NOTED. WILL CONTINUE TO MONITOR.
[2017-04-10 20:00] VITALS: BP 105/64
[2017-04-11] VITALS: BP 104/79
--- NOTE | 2017-04-11 03:06 | NUR ---
PT RESTING IN BED WITH EYES CLOSED RESPS EASY AND NONLABORED WITH NO S.S OF DISTRESS CALL LIGHT WITH IN REACH
[2017-04-11 06:03] LABS: HEMATOCRIT 31.1 % (37.0-47.0); LYMPH # 0.9 10*3/uL (1.3-4.4); LYMPH % 16.3 % (27.0-41.0); MEAN CELL VOLUME 91.2 fl (81.0-99.0); MEAN CORPUSCULAR HGB 29.3 pg (27.0-31.0); MEAN CORPUSCULAR HGB CONC 32.2 g/dl (33.0-37.0); MEAN PLATELET VOLUME 10.7 fl (9.6-12.3); MONO # 0.2 10*3/uL (0.1-1.0); MONO % 2.7 % (3.0-9.0); NEUT # 4.5 10*3/uL (2.3-7.9); NEUT % 79.4 % (47.0-73.0); NUCLEATED RED BLOOD CELL 0.4 % (0.0-0.0); PLATELET COUNT AUTOMATED 193 10*3/uL (130-400); RED BLOOD COUNT 3.41 10*6/uL (4.10-5.10); WHITE BLOOD COUNT 5.7 10*3/uL (4.8-10.8)
[2017-04-11 06:11] LABS: CHLORIDE 103 mmol/L (98-107); CREATININE 0.79 mg/dL (0.55-1.02); SODIUM 139 mmol/L (136-145)
[2017-04-11 06:17] LABS: BUN 10 mg/dl (7-24)
[2017-04-11 08:00] VITALS: BP 158/77
--- NOTE | 2017-04-11 09:12 | NUR ---
manager inventory control in to see patient. There are no current needs or request. Upon discharge patient will go home with daughter with [facility].
[2017-04-11 12:00] VITALS: BP 121/71
--- NOTE | 2017-04-11 15:15 | NUR ---
PT IN NO DISTRESS..PT STATES SHE WILL HAVE THEM CALL RESPIRATORY IF TX IS NEEDED
--- NOTE | 2017-04-11 15:21 | NUR ---
Physical therapy evaluation completed. Patient initially refused PT eval d/t eating lunch but upon second attempt patient was agreeable. Patient sitting up in jorge care upon this PT's arrival with 2L O2 via nasal cannula. Pt reports she just received a pain pill from the nurse d/t severe pain rated at 10/10 in both LE's all over the whole leg on both sides. Patient states this is not new. Sit to stand with CGA x 1 and 3 attempts to stand at walker. Gait with front wheeled walker x 30 ft with SBA/light CGA x 1. SOB after walking taking 2 minutes to recover. Patient denied change in B LE pain at any time during this visit. Patient was instructed to perform marching, LAQ and ankle pumps 10 reps hourly. Patient will need reminders for consistency. Patient remained sitting in jorge chair with LE's elevated, oxygen on, call button and phone within reach. Patient was very pleasant and cooperative. Recommending continued inpatient physical therapy for gait, transfers, strengthening, endurance and safety. Planning patient to return home with her family and home health care. Low complexity PT evaluation. Thank you for this referral, Renata Fox, PT
[2017-04-11 16:00] VITALS: BP 158/91
--- NOTE | 2017-04-11 18:10 | NUR ---
MEDICATED WITH PRN PERCOCET PER ORDER AND REQUEST FOR HEADACHE AND R KNEE PAIN.
[2017-04-11 20:00] VITALS: BP 119/61
[2017-04-12] VITALS: BP 116/77
--- NOTE | 2017-04-12 03:27 | NUR ---
24HR CHART CHECK COMPLETED.
[2017-04-12 07:21] LABS: BASO % 0.1 % (0.0-1.0); HEMATOCRIT 31.1 % (37.0-47.0); LYMPH % 14.8 % (27.0-41.0); MEAN CELL VOLUME 91.5 fl (81.0-99.0); MEAN CORPUSCULAR HGB 29.4 pg (27.0-31.0); MEAN CORPUSCULAR HGB CONC 32.2 g/dl (33.0-37.0); MEAN PLATELET VOLUME 10.7 fl (9.6-12.3); MONO # 0.2 10*3/uL (0.1-1.0); NEUT # 5.6 10*3/uL (2.3-7.9); NEUT % 80.8 % (47.0-73.0); NUCLEATED RED BLOOD CELL 0.6 % (0.0-0.0); PLATELET COUNT AUTOMATED 181 10*3/uL (130-400); RED CELL DISTRI WIDTH 17.2 % (0-14.5)
[2017-04-12 07:55] LABS: BUN 14 mg/dl (7-24); CHLORIDE 103 mmol/L (98-107); CREATININE 0.76 mg/dL (0.55-1.02); SODIUM 138 mmol/L (136-145)
[2017-04-12 08:00] VITALS: BP 158/84
--- NOTE | 2017-04-12 11:08 | NUR ---
business manager in to see patient. There are no current needs or request. Upon discharge patient will go home with daughter with [facility].
[2017-04-12 12:00] VITALS: BP 154/83
[2017-04-12] MEDS ORDERED: ZITHROMAX250 MG PO (12:58)
[2017-04-12] MEDS ORDERED: PREDNISONE10 MG PO (12:58)
[2017-04-12 16:00] VITALS: BP 125/75
--- NOTE | 2017-04-12 17:57 | NUR ---
MSDIS Discharge instructions reviewed with patient/family. Patient receptive and verbalizes understanding. Follow-up care arranged. Written instructions given to patient/family. SHELBY MONTAGUE
--- NOTE | 2017-04-13 07:56 | NUR ---
Patient discharged to home to resume home health via [facility]. Faxed order and clincals.
== END 2017-04-12 17:58 | disposition home health service (06) | DRG 190 ==
LOC: ED 17:19 → 4E 18:53 → EDHOLD 18:53 → 4E 18:58
PROVIDERS: Emergency Medicine; Hospitalist; ADMIT Internal Medicine
DX: J44.0 Chronic obstructive pulmonary disease with (acute) lower respiratory infection (principal); G93.41 Metabolic encephalopathy; E43 Unspecified severe protein-calorie malnutrition; J96.11 Chronic respiratory failure with hypoxia; E87.2 Acidosis; E11.65 Type 2 diabetes mellitus with hyperglycemia; Z99.81 Dependence on supplemental oxygen; F33.9 Major depressive disorder, recurrent, unspecified; Z68.41 Body mass index [BMI] 40.0-44.9, adult; D64.9 Anemia, unspecified; J44.1 Chronic obstructive pulmonary disease with (acute) exacerbation; D72.819 Decreased white blood cell count, unspecified; E87.6 Hypokalemia; M79.7 Fibromyalgia; I10 Essential (primary) hypertension; E66.9 Obesity, unspecified; F41.9 Anxiety disorder, unspecified; G89.29 Other chronic pain; H40.9 Unspecified glaucoma; Z51.5 Encounter for palliative care; Z66 Do not resuscitate; R00.0 Tachycardia, unspecified; E55.9 Vitamin D deficiency, unspecified; F03.90 Unspecified dementia, unspecified severity, without behavioral disturbance, psychotic disturbance, mood disturbance, and anxiety; K21.9 Gastro-esophageal reflux disease without esophagitis; J20.9 Acute bronchitis, unspecified; T38.0X5A Adverse effect of glucocorticoids and synthetic analogues, initial encounter; G47.33 Obstructive sleep apnea (adult) (pediatric); E78.00 Pure hypercholesterolemia, unspecified; Z82.49 Family history of ischemic heart disease and other diseases of the circulatory system; Z87.440 Personal history of urinary (tract) infections; Z90.49 Acquired absence of other specified parts of digestive tract; Z87.891 Personal history of nicotine dependence; Z79.82 Long term (current) use of aspirin; Z79.899 Other long term (current) drug therapy; Y92.89 Other specified places as the place of occurrence of the external cause

== ENCOUNTER 2018-07-12 18:32 | Inpatient (IN) | payer MEDICARE ==
[~2018-07-12] VITALS: Ht 165.1 cm; Wt 114.5 kg
--- NOTE | ~2018-07-12 | CON ---
[place], [place] REPORT OF CONSULTATION [id number] UNIT #: [id number] ROOM: 505 DOCTOR: TOBIAS HANNAH MD BIRTHDATE: [birth year] DOS: 07/14/2018 PSYCHIATRY CONSULT CHIEF COMPLAINT: "Oh my God, Dr. Hannah, I missed you. HISTORY OF PRESENT ILLNESS: This is a 72-year-old white female known to me from my private practice at [place] as well as a previous admission to the [facility]. The patient presents now to the medical floor with significant COPD and UTI symptoms. In the course of being treated, the patient has reported to the staff that she has been seeing bugs crawling on the guevara and on the ceilings and that these visions are very disturbing to her and often keep her up. She also endorses significant depressive symptoms and states that she is very down and despondent. She has not been eating well, sleeping well. Her memory has significant gaps that she was not able to tell me how long she has been in the hospital or exactly what led to her coming into the hospital. PAST MEDICAL HISTORY: Remarkable for a long history of chronic pain and depression with fibromyalgia, also COPD, diabetes, glaucoma, hypertension, normocytic anemia, severe protein-calorie malnutrition and vitamin D deficiency. SOCIAL HISTORY: The patient is a former cigarette smoker. She does not drink alcohol nor does she use illicit drugs. ALLERGIES: She lists no known allergies. STRENGTHS: Good verbal skills, supportive family. WEAKNESSES: Long-term psychiatric issues, poor coping skills and cognitive decline. MENTAL STATUS: The patient is alert and oriented to person and place. She is not oriented to time. Mood is overwhelmingly depressed. Affect flat, blunted, and constricted with some anxious overtones. Additionally, she endorses positive visual hallucinations and she is still seeing bugs crawling on the wall and on the ceilings. She at times processes conversation slowly and is slow to respond. Short term memory definitely has gaps. DIAGNOSIS: Major depression, recurrent with psychotic features and Alzheimer's dementia. PLAN: I did ask the patient if she would want to come to the psych unit, should these symptoms persist after her medical problems have been alleviated and she nodded in approval. At this point, I do not think some changes can be made while she is on the medical floor to attempt to get these symptoms under control. Should you require further intervention or when you are ready to transfer to the psychiatric floor if needed, please recontact me. [place], [place] REPORT OF CONSULTATION NAME: RADHAMERRY Bates UNIT #: [id number] ROOM: [facility] DOCTOR: TOBIAS HANNAH MD BIRTHDATE: [birth year] TOBIAS HANNAH MD CM:CONSTR:REPORT OF CONSULTATION 0936 07/15/18 0412 interface
--- NOTE | ~2018-07-12 | EKG ---
[place], [place] ELECTROCARDIOGRAM REPORT NAME: MERRY GARCIA UNIT #: [id number] ROOM: 505 DOCTOR: JANNA DRAFT REPORT BIRTHDATE: [birth year] [facility] Test Date: 2018-07-12 Test Time: 19:20:56 Pat Name: MERRY GARCIA Department: Room: 505 Gender: F Chainstitch Seat Joiner: Xavier Garcia : 1945 Requested By: ALYSHA DUMONT Order Number: [id number] Reading MD: Shon Garces MD Measurements Intervals [place] Rate: 100 P: 54 MA: 180 QRS: 24 QRSD: 93 T: 75 QT: 345 QTc: 445 Interpretive Statements Sinus tachycardia Probable left atrial enlargement Low voltage, precordial leads Nonspecific T abnrm, anterolateral leads Electronically Signed On 07-13-2018 9:51:13 PST by Shon Gacres MD CM:EKGRPT:ELECTROCARDIOGRAM REPORT [id number] ALYSHA CAMPUZANO DRAFT REPORT ALYSHA DUMONT DO
[~2018-07-12 18:32] MED LIST changes: +MULTI-VITAMIN1 EACH PO; +VITAMIN E400 UNI3 PO
[2018-07-12 18:36] VITALS: BP 118/71
[2018-07-12 19:32] LABS: BASO # 0.1 10*3/uL (0.0-0.1); EOS # 0.2 10*3/uL (0.0-0.4); EOS % 1.5 % (1.0-4.0); HEMATOCRIT 38.5 % (37.0-47.0); HEMOGLOBIN 11.9 g/dl (12.0-16.0); LYMPH # 1.9 10*3/uL (1.3-4.4); LYMPH % 18.6 % (27.0-41.0); MEAN CELL VOLUME 88.7 fl (81.0-99.0); MEAN CORPUSCULAR HGB 27.4 pg (27.0-31.0); MEAN CORPUSCULAR HGB CONC 30.9 g/dl (33.0-37.0); MEAN PLATELET VOLUME 11.4 fl (9.6-12.3); MONO # 0.9 10*3/uL (0.1-1.0); MONO % 8.9 % (3.0-9.0); NEUT # 7.1 10*3/uL (2.3-7.9); NEUT % 69.6 % (47.0-73.0); PLATELET COUNT AUTOMATED 196 10*3/uL (130-400); RED BLOOD COUNT 4.34 10*6/uL (4.10-5.10); RED CELL DISTRI WIDTH 15.2 % (0-14.5); WHITE BLOOD COUNT 10.1 10*3/uL (4.8-10.8)
[2018-07-12 19:41] LABS: ACT PARTIAL THROMBO TIME 24.7 SECONDS (20.8-31.5)
[2018-07-12 20:04] LABS: ALBUMIN 3.9 gm/dl (3.1-4.5); ALKALINE PHOSPHATASE 116 U/L (45-117); BUN 12 mg/dl (7-24); CHLORIDE 100 mmol/L (98-107); CREATININE 1.34 mg/dL (0.55-1.02); POTASSIUM 3.8 mmol/L (3.5-5.1); SGOT/AST 15 IU/L (3-35); SGPT/ALT 23 U/L (12-78); SODIUM 138 mmol/L (136-145); TOTAL PROTEIN 7.4 gm/dL (6.4-8.2)
[2018-07-12 20:07] LABS: TROPONIN I < 0.015 ng/ml (<0.045)
[2018-07-12 20:49] LABS: BILIRUBIN NEGATIVE (NEGATIVE); BLOOD NEGATIVE (NEGATIVE); CLARITY SL CLOUDY (CLEAR); COLOR YELLOW (YELLOW); GLUCOSE NEGATIVE (NEGATIVE); KETONE 1+ (NEGATIVE); LEUKO ESTERASE NEGATIVE (NEGATIVE); NITRITE NEGATIVE (NEGATIVE); PH 5.5 (5.0-9.0); SPECIFIC GRAVITY 1.025 (1.005-1.030); UROBILINOGEN 0.2 E.U./dl (0.2-1.0)
[2018-07-12 21:06] LABS: BACTERIA 1+; MUCOUS 1+
[2018-07-12 23:10] VITALS: BP 128/82
[2018-07-12 23:15] VITALS: BP 96/60
[2018-07-13 06:26] LABS: BASO # 0.1 10*3/uL (0.0-0.1); BASO % 0.8 % (0.0-1.0); EOS # 0.1 10*3/uL (0.0-0.4); EOS % 1.4 % (1.0-4.0); HEMATOCRIT 36.2 % (37.0-47.0); LYMPH # 1.5 10*3/uL (1.3-4.4); LYMPH % 19.1 % (27.0-41.0); MEAN CELL VOLUME 88.7 fl (81.0-99.0); MEAN CORPUSCULAR HGB CONC 30.4 g/dl (33.0-37.0); MEAN PLATELET VOLUME 11.7 fl (9.6-12.3); MONO # 0.9 10*3/uL (0.1-1.0); MONO % 12.3 % (3.0-9.0); NEUT # 5.1 10*3/uL (2.3-7.9); NEUT % 66.1 % (47.0-73.0); PLATELET COUNT AUTOMATED 188 10*3/uL (130-400); RED BLOOD COUNT 4.08 10*6/uL (4.10-5.10); RED CELL DISTRI WIDTH 15.3 % (0-14.5); WHITE BLOOD COUNT 7.7 10*3/uL (4.8-10.8)
[2018-07-13 06:51] LABS: ALBUMIN 3.6 gm/dl (3.1-4.5); CREATININE 1.09 mg/dL (0.55-1.02); PHOSPHOROUS 2.9 mg/dL (2.5-4.9); TOTAL PROTEIN 6.8 gm/dL (6.4-8.2)
[2018-07-13 06:56] LABS: THYROID STIM HORMONE (HS) 3.96 uIU/ml (0.358-4.75)
[2018-07-13 08:00] VITALS: BP 92/68
[2018-07-13 08:46] LABS: VITAMIN D, 25-HYDROXY 47.4 ng/mL (30-100)
[2018-07-13] MEDS ORDERED: NEURONTIN600 MG PO (09:50)
[2018-07-13] MEDS ORDERED: MACROBID100 M1 PO (09:50)
[2018-07-13] MEDS ORDERED: BUTRANS1 EACH TD (09:51)
[2018-07-13] MEDS ORDERED: BUSPAR5 MG PO (09:52)
[2018-07-13] MEDS ORDERED: VITAMIN D5000 UNIT PO (09:52)
[2018-07-13] MEDS ORDERED: TOPROL XL50 M1 PO (09:53)
[2018-07-13] MEDS ORDERED: KLOR-CON M2020 ME1 PO (09:54)
[2018-07-13] MEDS ORDERED: NOVOLOG100 UNIT/1 SQ (09:55)
[2018-07-13] MEDS ORDERED: GLIPIZIDE XL5 M1 PO (09:55)
[2018-07-13] MEDS ORDERED: PERCOCET 7.5-31 EACH PO (09:56)
[2018-07-13 12:00] VITALS: BP 97/65
[2018-07-13 13:11] LABS: URINE AMPHETAMINES < 1000 (1000ng/ml); URINE BARBITURATES < 200 (200ng/ml); URINE BENZODIAZEPINES < 200 (200ng/ml); URINE CANNABINOIDS (THC) < 50 (50ng/ml); URINE COCAINE < 300 (300ng/ml); URINE METHADONE < 300 (300ng/ml); URINE OPIATES > 300 (300ng/ml)
[2018-07-13 13:12] LABS: URINE PHENCYCLIDINE < 25 (25ng/ml)
[2018-07-13 16:00] VITALS: BP 112/65
[2018-07-13 18:00] VITALS: BP 112/65
[2018-07-13 20:00] VITALS: BP 121/67
[2018-07-14] VITALS: BP 108/58
[2018-07-14 06:06] LABS: BASO # 0.1 10*3/uL (0.0-0.1); BASO % 1.1 % (0.0-1.0); EOS # 0.1 10*3/uL (0.0-0.4); HEMATOCRIT 34.1 % (37.0-47.0); HEMOGLOBIN 10.4 g/dl (12.0-16.0); LYMPH # 1.9 10*3/uL (1.3-4.4); LYMPH % 26.7 % (27.0-41.0); MEAN CELL VOLUME 89.5 fl (81.0-99.0); MEAN CORPUSCULAR HGB 27.3 pg (27.0-31.0); MEAN CORPUSCULAR HGB CONC 30.5 g/dl (33.0-37.0); MEAN PLATELET VOLUME 11.6 fl (9.6-12.3); MONO # 0.9 10*3/uL (0.1-1.0); MONO % 12.4 % (3.0-9.0); NEUT # 4.1 10*3/uL (2.3-7.9); NEUT % 57.5 % (47.0-73.0); PLATELET COUNT AUTOMATED 174 10*3/uL (130-400); RED BLOOD COUNT 3.81 10*6/uL (4.10-5.10); RED CELL DISTRI WIDTH 15.4 % (0-14.5); WHITE BLOOD COUNT 7.1 10*3/uL (4.8-10.8)
[2018-07-14 06:15] LABS: BUN 9 mg/dl (7-24); CHLORIDE 106 mmol/L (98-107); CREATININE 1.02 mg/dL (0.55-1.02); POTASSIUM 3.9 mmol/L (3.5-5.1); SODIUM 142 mmol/L (136-145)
[2018-07-14 08:00] VITALS: BP 130/83
[2018-07-14 12:00] VITALS: BP 107/78
[2018-07-14 16:00] VITALS: BP 98/56
[2018-07-14 20:00] VITALS: BP 104/85
[2018-07-15 06:34] LABS: POTASSIUM 4.1 mmol/L (3.5-5.1)
[2018-07-15 06:36] LABS: CREATININE 1.16 mg/dL (0.55-1.02)
[2018-07-15 08:00] VITALS: BP 95/71
[2018-07-15 12:00] VITALS: BP 93/68
[2018-07-15 16:00] VITALS: BP 116/96
[2018-07-15 20:00] VITALS: BP 115/65
[2018-07-16] VITALS: BP 100/76
[2018-07-16 08:00] VITALS: BP 115/78
[2018-07-16 12:00] VITALS: BP 100/54
[2018-07-16 16:00] VITALS: BP 148/69
[2018-07-16 20:00] VITALS: BP 111/56
[2018-07-17] VITALS: BP 105/71
[2018-07-17 06:38] LABS: BASO # 0.1 10*3/uL (0.0-0.1); BASO % 1.7 % (0.0-1.0); EOS # 0.4 10*3/uL (0.0-0.4); EOS % 7.3 % (1.0-4.0); HEMATOCRIT 38.8 % (37.0-47.0); HEMOGLOBIN 11.5 g/dl (12.0-16.0); LYMPH # 1.7 10*3/uL (1.3-4.4); LYMPH % 32.6 % (27.0-41.0); MEAN CELL VOLUME 91.3 fl (81.0-99.0); MEAN CORPUSCULAR HGB 27.1 pg (27.0-31.0); MEAN CORPUSCULAR HGB CONC 29.6 g/dl (33.0-37.0); MEAN PLATELET VOLUME 11.1 fl (9.6-12.3); MONO # 0.6 10*3/uL (0.1-1.0); MONO % 11.5 % (3.0-9.0); NEUT # 2.4 10*3/uL (2.3-7.9); NEUT % 46.5 % (47.0-73.0); PLATELET COUNT AUTOMATED 198 10*3/uL (130-400); RED BLOOD COUNT 4.25 10*6/uL (4.10-5.10); RED CELL DISTRI WIDTH 15.7 % (0-14.5); WHITE BLOOD COUNT 5.2 10*3/uL (4.8-10.8)
[2018-07-17 07:01] LABS: CREATININE 1.06 mg/dL (0.55-1.02)
[2018-07-17 08:00] VITALS: BP 136/58
[2018-07-17 12:00] VITALS: BP 127/60
[2018-07-17] MEDS ORDERED: RIVASTIGMINE1 EACH T (12:04)
[2018-07-17] MEDS ORDERED: DOXYCYCLINE100 M3 PO (12:06)
[2018-08-07] MEDS ORDERED: ASPIRIN81 M1 PO (21:40)
[2018-08-07] MEDS ORDERED: ATIVAN1 MG PO (21:45)
[2018-08-10] MEDS ORDERED: AMMONIUM LACTA227 GM T (12:11)
[2018-08-11] MEDS ORDERED: OXYGEN NAS (05:28)
[2018-08-22] MEDS ORDERED: RISPERIDONE0.5 MG PO (09:15)
[2018-08-22] MEDS ORDERED: VITAMIN E400 UNI3 PO (09:15)
[2018-08-22] MEDS ORDERED: RISPERIDONE2 M2 PO (09:15)
[2018-08-22] MEDS ORDERED: DULOXETINE HCL60 MG PO (09:15)
[2018-08-22] MEDS ORDERED: RIVASTIGMINE1 EAC1 T (09:15)
[2018-08-22] MEDS ORDERED: PREDNISONE10 MG PO (11:04)
[2018-08-22] MEDS ORDERED: MUCINEX ER600 MG PO (11:04)
[2018-08-22] MEDS ORDERED: CEFUROXIME AXE250 MG PO (11:04)
[2018-12-25] MEDS ORDERED: LORAZEPAM0.5 MG PO (19:06)
[2018-12-25] MEDS ORDERED: DULOXETINE HCL60 MG PO (19:06)
[2018-12-25] MEDS ORDERED: EXELON13.3 MG/21 T (19:06)
[2018-12-25] MEDS ORDERED: MEMANTINE HCL10 MG PO (19:06)
[2018-12-25] MEDS ORDERED: PALIPERIDONE ER3 MG PO (19:06)
[2018-12-27] MEDS ORDERED: LANTUS SOL100 UNIT/1 SC (16:59)
== END 2018-07-17 17:02 | disposition home health service (06) | DRG 871 ==
LOC: ED 18:32 → 5E 21:39 → EDHOLD 21:39 → 5E 22:33
PROVIDERS: Family Medicine; Internal Medicine; Student in an Organized Health Care Education/Training Program; ADMIT Internal Medicine
DX: A41.9 Sepsis, unspecified organism (principal); G93.41 Metabolic encephalopathy; N17.0 Acute kidney failure with tubular necrosis; L03.115 Cellulitis of right lower limb; F33.3 Major depressive disorder, recurrent, severe with psychotic symptoms; N39.0 Urinary tract infection, site not specified; Z68.41 Body mass index [BMI] 40.0-44.9, adult; R65.20 Severe sepsis without septic shock; D64.9 Anemia, unspecified; E11.65 Type 2 diabetes mellitus with hyperglycemia; F41.1 Generalized anxiety disorder; E55.9 Vitamin D deficiency, unspecified; G89.29 Other chronic pain; G30.9 Alzheimer's disease, unspecified; G24.01 Drug induced subacute dyskinesia; F41.9 Anxiety disorder, unspecified; F02.80 Dementia in other diseases classified elsewhere, unspecified severity, without behavioral disturbance, psychotic disturbance, mood disturbance, and anxiety; H40.9 Unspecified glaucoma; J44.9 Chronic obstructive pulmonary disease, unspecified; M79.7 Fibromyalgia; I10 Essential (primary) hypertension; E66.9 Obesity, unspecified; Z99.81 Dependence on supplemental oxygen; Z90.49 Acquired absence of other specified parts of digestive tract; Z79.4 Long term (current) use of insulin; Z79.82 Long term (current) use of aspirin; Z79.84 Long term (current) use of oral hypoglycemic drugs

== ENCOUNTER 2018-12-12 15:46 | Emergency (ER) | payer MEDICARE ==
[~2018-12-12] VITALS: Ht 167.6 cm; Wt 99.8 kg
--- NOTE | ~2018-12-12 | EKG ---
[place], [place] ELECTROCARDIOGRAM REPORT NAME: MERRY GARCIA UNIT #: [id number] ROOM: DOCTOR: EPIPHANY DRAFT REPORT BIRTHDATE: [birth year] [facility] Test Date: 2018-12-12 Test Time: 16:47:13 Pat Name: MERRY GARCIA Department: Room: [facility] Gender: F Credit And Collections Analyst: Raina Mahoney : 1945 Requested By: JUANI SERRANO PA-C Order Number: [id number] Reading MD: Berny Medina MD Measurements Intervals [place] Rate: 97 P: 67 IA: 173 QRS: 17 QRSD: 84 T: 79 QT: 327 QTc: 416 Interpretive Statements Sinus rhythm Minimal ST elevation, inferior leads Compared to ECG 08/21/2018 18:37:04 ST (T wave) deviation now present Sinus tachycardia no longer present T-wave abnormality no longer present Electronically Signed On 12-13-2018 6:22:51 PDT by Berny Medina MD CM:EKGRPT:ELECTROCARDIOGRAM REPORT [id number] JUANI SERRANO PA-C EPIPHANY DRAFT REPORT JUANI SERRANO PA-C
[~2018-12-12 15:46] MED LIST changes: +AMMONIUM LACTA227 GM T; +BUSPAR5 MG PO; +BUTRANS1 EACH TD; +CEFUROXIME AXE250 MG PO; +DOXYCYCLINE100 M3 PO; +GLIPIZIDE XL5 M1 PO; +KLOR-CON M2020 ME1 PO; +MACROBID100 M1 PO; +MUCINEX ER600 MG PO; +NOVOLOG100 UNIT/1 SQ; +PERCOCET 7.5-31 EACH PO; +RISPERIDONE0.5 MG PO; +RISPERIDONE2 M2 PO; +RIVASTIGMINE1 EAC1 T; +TOPROL XL50 M1 PO; +VITAMIN D5000 UNIT PO
[2018-12-12 16:30] LABS: BASO # 0.1 10*3/uL (0.0-0.1); BASO % 0.9 % (0.0-1.0); EOS # 0.2 10*3/uL (0.0-0.4); EOS % 3.6 % (1.0-4.0); HEMATOCRIT 41.6 % (37.0-47.0); HEMOGLOBIN 12.6 g/dl (12.0-16.0); LYMPH # 1.5 10*3/uL (1.3-4.4); LYMPH % 22.4 % (27.0-41.0); MEAN CELL VOLUME 92.4 fl (81.0-99.0); MEAN CORPUSCULAR HGB CONC 30.3 g/dl (33.0-37.0); MEAN PLATELET VOLUME 11.2 fl (9.6-12.3); MONO # 0.6 10*3/uL (0.1-1.0); MONO % 9.2 % (3.0-9.0); NEUT # 4.2 10*3/uL (2.3-7.9); NEUT % 63.6 % (47.0-73.0); PLATELET COUNT AUTOMATED 165 10*3/uL (130-400); RED CELL DISTRI WIDTH 14.1 % (0-14.5); WHITE BLOOD COUNT 6.6 10*3/uL (4.8-10.8)
[2018-12-12 16:42] LABS: ACT PARTIAL THROMBO TIME 22.8 SECONDS (20.0-32.1); INTERNATIONAL NORM RATIO 0.9 (2.0-3.5)
[2018-12-12 16:45] LABS: ALBUMIN 3.4 gm/dl (3.1-4.5); ALKALINE PHOSPHATASE 110 U/L (45-117); BUN 15 mg/dl (7-24); CHLORIDE 97 mmol/L (98-107); CREATININE 1.05 mg/dL (0.55-1.02); LIPASE 68 U/L (73-393); POTASSIUM 4.3 mmol/L (3.5-5.1); SGOT/AST 14 IU/L (3-35); SGPT/ALT 20 U/L (12-78); SODIUM 137 mmol/L (136-145); TOTAL PROTEIN 6.7 gm/dL (6.4-8.2)
[2018-12-12 16:48] LABS: TROPONIN I < 0.015 ng/ml (<0.045)
[2018-12-12 17:13] LABS: BILIRUBIN NEGATIVE (NEGATIVE); BLOOD NEGATIVE (NEGATIVE); CLARITY SL CLOUDY (CLEAR); COLOR YELLOW (YELLOW); GLUCOSE 3+ (NEGATIVE); KETONE NEGATIVE (NEGATIVE); LEUKO ESTERASE NEGATIVE (NEGATIVE); NITRITE NEGATIVE (NEGATIVE); SPECIFIC GRAVITY 1.025 (1.005-1.030); UROBILINOGEN 0.2 E.U./dl (0.2-1.0)
[2018-12-12 17:40] LABS: BACTERIA TRACE; EPITHELIAL CELLS 0-2; WBC 0-2 wbc/hpf (0-5)
[2018-12-12] MEDS ORDERED: VITAMIN E400 UNI3 PO (17:43)
[2018-12-12] MEDS ORDERED: BELBUCA75 MCG BC (17:45)
[2018-12-25] MEDS ORDERED: PALIPERIDONE ER3 MG PO (19:06)
[2018-12-25] MEDS ORDERED: DULOXETINE HCL60 MG PO (19:06)
[2018-12-25] MEDS ORDERED: EXELON13.3 MG/21 T (19:06)
[2018-12-25] MEDS ORDERED: MEMANTINE HCL10 MG PO (19:06)
[2018-12-25] MEDS ORDERED: LORAZEPAM0.5 MG PO (19:06)
[2018-12-27] MEDS ORDERED: LANTUS SOL100 UNIT/1 SC (16:59)
== END 2018-12-12 19:22 | disposition home or self-care (01) ==
LOC: ED 15:46
PROVIDERS: Physician Assistant
DX: R41.0 Disorientation, unspecified (principal); R22.0 Localized swelling, mass and lump, head; F03.90 Unspecified dementia, unspecified severity, without behavioral disturbance, psychotic disturbance, mood disturbance, and anxiety; Z79.899 Other long term (current) drug therapy; Z79.82 Long term (current) use of aspirin; Z90.49 Acquired absence of other specified parts of digestive tract; Z87.891 Personal history of nicotine dependence

== ENCOUNTER → 2019-02-27 | Outpatient (CLI) | payer MEDICARE ==
[~2019-02-27] MED LIST changes: +BELBUCA75 MCG BC; +EXELON13.3 MG/21 T; +LANTUS SOL100 UNIT/1 SC; +MEMANTINE HCL10 MG PO; +PALIPERIDONE ER3 MG PO
[2019-02-27 16:47] LABS: BASO # 0.1 10*3/uL (0.0-0.1); BASO % 0.8 % (0.0-1.0); EOS # 0.2 10*3/uL (0.0-0.4); EOS % 2.3 % (1.0-4.0); HEMATOCRIT 46.2 % (37.0-47.0); HEMOGLOBIN 13.9 g/dl (12.0-16.0); LYMPH # 2.1 10*3/uL (1.3-4.4); LYMPH % 21.4 % (27.0-41.0); MEAN CELL VOLUME 90.2 fl (81.0-99.0); MEAN CORPUSCULAR HGB 27.1 pg (27.0-31.0); MEAN CORPUSCULAR HGB CONC 30.1 g/dl (33.0-37.0); MEAN PLATELET VOLUME 11.2 fl (9.6-12.3); MONO # 0.9 10*3/uL (0.1-1.0); MONO % 9.2 % (3.0-9.0); NEUT # 6.5 10*3/uL (2.3-7.9); NEUT % 65.9 % (47.0-73.0); PLATELET COUNT AUTOMATED 271 10*3/uL (130-400); RED BLOOD COUNT 5.12 10*6/uL (4.10-5.10); RED CELL DISTRI WIDTH 14.2 % (0-14.5); WHITE BLOOD COUNT 9.9 10*3/uL (4.8-10.8)
[2019-02-27 17:03] LABS: ALBUMIN 3.3 gm/dl (3.1-4.5); CREATININE 1.13 mg/dL (0.55-1.02); TOTAL PROTEIN 7.3 gm/dL (6.4-8.2)
== END | disposition home or self-care (01) ==
LOC: LAB 15:52
PROVIDERS: Nurse Practitioner Primary Care
DX: I10 Essential (primary) hypertension (principal); E11.9 Type 2 diabetes mellitus without complications; R05 Cough

== ENCOUNTER 2019-07-10 19:37 | Inpatient (IN) | payer MEDICARE ==
[~2019-07-10] VITALS: Ht 170.1 cm; Wt 110.4 kg
[2019-07-10 21:01] LABS: BASO # 0.1 10*3/uL (0.0-0.1); BASO % 0.7 % (0.0-1.0); EOS # 0.3 10*3/uL (0.0-0.4); EOS % 3.9 % (1.0-4.0); HEMOGLOBIN 12.8 g/dl (12.0-16.0); LYMPH # 1.3 10*3/uL (1.3-4.4); LYMPH % 15.5 % (27.0-41.0); MEAN CELL VOLUME 93.1 fl (81.0-99.0); MEAN CORPUSCULAR HGB 28.4 pg (27.0-31.0); MEAN CORPUSCULAR HGB CONC 30.5 g/dl (33.0-37.0); MEAN PLATELET VOLUME 11.1 fl (9.6-12.3); MONO # 0.8 10*3/uL (0.1-1.0); MONO % 9.2 % (3.0-9.0); NEUT # 5.7 10*3/uL (2.3-7.9); NEUT % 70.5 % (47.0-73.0); PLATELET COUNT AUTOMATED 193 10*3/uL (130-400); RED BLOOD COUNT 4.51 10*6/uL (4.10-5.10); RED CELL DISTRI WIDTH 13.6 % (0-14.5); WHITE BLOOD COUNT 8.1 10*3/uL (4.8-10.8)
[2019-07-10 21:08] LABS: BILIRUBIN NEGATIVE (NEGATIVE); BLOOD 1+ (NEGATIVE); CLARITY CLOUDY (CLEAR); COLOR YELLOW (YELLOW); GLUCOSE NEGATIVE (NEGATIVE); KETONE NEGATIVE (NEGATIVE); LEUKO ESTERASE 2+ (NEGATIVE); NITRITE POSITIVE (NEGATIVE); SPECIFIC GRAVITY 1.025 (1.005-1.030); UROBILINOGEN 0.2 E.U./dl (0.2-1.0)
[2019-07-10 21:09] LABS: BACTERIA 4+; EPITHELIAL CELLS 31-40; WBC TNTC wbc/hpf (0-5)
[2019-07-10 21:12] LABS: ACT PARTIAL THROMBO TIME 26.1 SECONDS (20.0-32.1); INTERNATIONAL NORM RATIO 0.9 (2.0-3.5)
[2019-07-10 21:17] VITALS: BP 115/52
[2019-07-10 21:21] LABS: ALBUMIN 3.2 gm/dl (3.1-4.5); ALKALINE PHOSPHATASE 110 U/L (45-117); BUN 21 mg/dl (7-24); CHLORIDE 103 mmol/L (98-107); CREATININE 1.14 mg/dL (0.55-1.02); SGOT/AST 11 IU/L (3-35); SGPT/ALT 20 U/L (12-78); SODIUM 140 mmol/L (136-145); TOTAL PROTEIN 6.4 gm/dL (6.4-8.2)
[2019-07-10 21:23] LABS: TROPONIN I < 0.015 ng/ml (<0.045)
[2019-07-10 23:30] VITALS: BP 133/71
[2019-07-11] VITALS: BP 133/71
[2019-07-11 06:50] LABS: BASO # 0.1 10*3/uL (0.0-0.1); BASO % 0.8 % (0.0-1.0); EOS # 0.3 10*3/uL (0.0-0.4); EOS % 3.8 % (1.0-4.0); HEMATOCRIT 39.4 % (37.0-47.0); HEMOGLOBIN 12.2 g/dl (12.0-16.0); LYMPH # 1.2 10*3/uL (1.3-4.4); LYMPH % 15.7 % (27.0-41.0); MEAN CELL VOLUME 92.1 fl (81.0-99.0); MEAN CORPUSCULAR HGB 28.5 pg (27.0-31.0); MEAN PLATELET VOLUME 10.9 fl (9.6-12.3); MONO # 0.9 10*3/uL (0.1-1.0); MONO % 11.1 % (3.0-9.0); NEUT # 5.2 10*3/uL (2.3-7.9); NEUT % 68.3 % (47.0-73.0); PLATELET COUNT AUTOMATED 181 10*3/uL (130-400); RED BLOOD COUNT 4.28 10*6/uL (4.10-5.10); RED CELL DISTRI WIDTH 13.5 % (0-14.5); WHITE BLOOD COUNT 7.6 10*3/uL (4.8-10.8)
[2019-07-11 07:02] LABS: BUN 15 mg/dl (7-24); CHLORIDE 106 mmol/L (98-107); SODIUM 140 mmol/L (136-145)
[2019-07-11 07:06] LABS: CHOLESTEROL 158 mg/dL (<200); HDL CHOLESTEROL 45 mg/dl (40-60); LDL CHOLESTEROL 75 mg/dL (9-159); PHOSPHOROUS 2.7 mg/dL (2.5-4.9); TRIGLYCERIDES 189 mg/dl (<150); VLDL CHOLESTEROL 38 mg/dL (6-40)
[2019-07-11 08:00] VITALS: BP 110/50
[2019-07-11] MEDS ORDERED: NEURONTIN300 MG PO (09:23)
[2019-07-11] MEDS ORDERED: OMEPRAZOLE MAGN20 MG PO (09:24)
[2019-07-11] MEDS ORDERED: RISPERIDONE1 MG PO (09:24)
[2019-07-11] MEDS ORDERED: NYSTOP60 GM T (09:26)
[2019-07-11] MEDS ORDERED: PROAIR HFA8.5 GM INH (11:06)
[2019-07-11] MEDS ORDERED: VITAMIN D32000 UNI1 PO (11:12)
[2019-07-11 12:00] VITALS: BP 142/50
[2019-07-11 16:00] VITALS: BP 147/66
[2019-07-11 20:00] VITALS: BP 96/46
[2019-07-12] VITALS: BP 98/75
[2019-07-12 08:00] VITALS: BP 128/69
[2019-07-12 12:00] VITALS: BP 80/51
[2019-07-12 16:00] VITALS: BP 101/32
[2019-07-12 20:00] VITALS: BP 136/64
[2019-07-13] VITALS: BP 102/52
[2019-07-13 08:00] VITALS: BP 150/58
[2019-07-13 12:00] VITALS: BP 112/50
[2019-07-13 16:00] VITALS: BP 122/46
[2019-07-13 20:00] VITALS: BP 149/57
[2019-07-14] VITALS: BP 101/66
[2019-07-14 06:47] LABS: BASO # 0.1 10*3/uL (0.0-0.1); EOS # 0.5 10*3/uL (0.0-0.4); EOS % 10.2 % (1.0-4.0); HEMATOCRIT 36.6 % (37.0-47.0); LYMPH # 1.4 10*3/uL (1.3-4.4); LYMPH % 27.9 % (27.0-41.0); MEAN CELL VOLUME 94.6 fl (81.0-99.0); MEAN CORPUSCULAR HGB 28.4 pg (27.0-31.0); MEAN CORPUSCULAR HGB CONC 30.1 g/dl (33.0-37.0); MEAN PLATELET VOLUME 10.9 fl (9.6-12.3); MONO # 0.7 10*3/uL (0.1-1.0); MONO % 12.9 % (3.0-9.0); NEUT # 2.4 10*3/uL (2.3-7.9); NEUT % 47.8 % (47.0-73.0); PLATELET COUNT AUTOMATED 148 10*3/uL (130-400); RED BLOOD COUNT 3.87 10*6/uL (4.10-5.10); RED CELL DISTRI WIDTH 13.8 % (0-14.5)
[2019-07-14 06:57] LABS: BUN 6 mg/dl (7-24); CREATININE 0.89 mg/dL (0.55-1.02)
[2019-07-14 08:00] VITALS: BP 149/68
[2019-07-14 12:00] VITALS: BP 149/59
[2019-07-14 16:00] VITALS: BP 149/70
[2019-07-14 20:00] VITALS: BP 159/75
[2019-07-15] VITALS: BP 158/62
[2019-07-15 06:13] LABS: BASO # 0.1 10*3/uL (0.0-0.1); BASO % 1.2 % (0.0-1.0); EOS # 0.5 10*3/uL (0.0-0.4); EOS % 8.8 % (1.0-4.0); HEMATOCRIT 36.9 % (37.0-47.0); HEMOGLOBIN 11.2 g/dl (12.0-16.0); LYMPH # 1.3 10*3/uL (1.3-4.4); MEAN CELL VOLUME 92.9 fl (81.0-99.0); MEAN CORPUSCULAR HGB 28.2 pg (27.0-31.0); MEAN CORPUSCULAR HGB CONC 30.4 g/dl (33.0-37.0); MEAN PLATELET VOLUME 10.3 fl (9.6-12.3); MONO # 0.7 10*3/uL (0.1-1.0); MONO % 11.2 % (3.0-9.0); NEUT # 3.2 10*3/uL (2.3-7.9); NEUT % 55.5 % (47.0-73.0); PLATELET COUNT AUTOMATED 159 10*3/uL (130-400); RED BLOOD COUNT 3.97 10*6/uL (4.10-5.10); RED CELL DISTRI WIDTH 13.5 % (0-14.5); WHITE BLOOD COUNT 5.8 10*3/uL (4.8-10.8)
[2019-07-15 08:00] VITALS: BP 138/50
[2019-07-15 12:00] VITALS: BP 97/57
[2019-07-15] MEDS ORDERED: DOXYCYCLINE MO100 M1 PO (12:06)
== END 2019-07-15 17:55 | disposition home or self-care (01) | DRG 757 ==
LOC: ED 19:37 → EDHOLD 22:01 → 5E 22:01
PROVIDERS: Emergency Medicine; Internal Medicine; Student in an Organized Health Care Education/Training Program; ADMIT Family Medicine
DX: B37.3 Candidiasis of vulva and vagina (principal); G93.41 Metabolic encephalopathy; N39.0 Urinary tract infection, site not specified; L03.115 Cellulitis of right lower limb; J96.11 Chronic respiratory failure with hypoxia; N17.9 Acute kidney failure, unspecified; R68.84 Jaw pain; D72.810 Lymphocytopenia; G89.29 Other chronic pain; M79.7 Fibromyalgia; M19.079 Primary osteoarthritis, unspecified ankle and foot; N18.3 Chronic kidney disease, stage 3 (moderate); I12.9 Hypertensive chronic kidney disease with stage 1 through stage 4 chronic kidney disease, or unspecified chronic kidney disease; E11.22 Type 2 diabetes mellitus with diabetic chronic kidney disease; Z66 Do not resuscitate; Z51.5 Encounter for palliative care; E11.65 Type 2 diabetes mellitus with hyperglycemia; G47.33 Obstructive sleep apnea (adult) (pediatric); E66.01 Morbid (severe) obesity due to excess calories; H91.93 Unspecified hearing loss, bilateral; F32.9 Major depressive disorder, single episode, unspecified; I87.2 Venous insufficiency (chronic) (peripheral); J44.9 Chronic obstructive pulmonary disease, unspecified; F41.9 Anxiety disorder, unspecified; E55.9 Vitamin D deficiency, unspecified; Z79.4 Long term (current) use of insulin; Z99.81 Dependence on supplemental oxygen; Z90.49 Acquired absence of other specified parts of digestive tract; Z82.49 Family history of ischemic heart disease and other diseases of the circulatory system; Z79.899 Other long term (current) drug therapy; Z79.82 Long term (current) use of aspirin; Z87.891 Personal history of nicotine dependence; Z68.37 Body mass index [BMI] 37.0-37.9, adult

== ENCOUNTER 2019-08-28 18:01 | Inpatient (IN) | payer MEDICARE ==
[~2019-08-28] VITALS: Ht 167.6 cm; Wt 105.5 kg
[~2019-08-28 18:01] MED LIST changes: +NEURONTIN300 MG PO; +NYSTATIN CREAM15 GM T; +OMEPRAZOLE MAGN20 MG PO; +PROAIR HFA8.5 GM INH; +RISPERIDONE1 MG PO; +TOPROL XL25 MG PO; -TOPROL XL50 M1 PO; +VITAMIN D32000 UNI1 PO
[2019-08-28 18:08] VITALS: BP 96/55
[2019-08-28 19:08] LABS: BASO # 0.1 10*3/uL (0.0-0.1); BASO % 1.2 % (0.0-1.0); EOS # 0.3 10*3/uL (0.0-0.4); HEMATOCRIT 40.4 % (37.0-47.0); LYMPH # 1.6 10*3/uL (1.3-4.4); LYMPH % 17.8 % (27.0-41.0); MEAN CELL VOLUME 91.2 fl (81.0-99.0); MEAN CORPUSCULAR HGB 29.1 pg (27.0-31.0); MEAN CORPUSCULAR HGB CONC 31.9 g/dl (33.0-37.0); MONO % 10.5 % (3.0-9.0); NEUT # 6.1 10*3/uL (2.3-7.9); NEUT % 67.2 % (47.0-73.0); PLATELET COUNT AUTOMATED 183 10*3/uL (130-400); RED BLOOD COUNT 4.43 10*6/uL (4.10-5.10); RED CELL DISTRI WIDTH 13.9 % (0-14.5)
[2019-08-28 19:15] VITALS: BP 112/46
[2019-08-28 19:17] LABS: ACT PARTIAL THROMBO TIME 23.8 SECONDS (20.0-32.1)
[2019-08-28 19:19] LABS: BILIRUBIN NEGATIVE (NEGATIVE); BLOOD NEGATIVE (NEGATIVE); CLARITY CLEAR (CLEAR); COLOR YELLOW (YELLOW); GLUCOSE TRACE (NEGATIVE); KETONE NEGATIVE (NEGATIVE); LEUKO ESTERASE TRACE (NEGATIVE); NITRITE NEGATIVE (NEGATIVE); SPECIFIC GRAVITY 1.025 (1.005-1.030); UROBILINOGEN 0.2 E.U./dl (0.2-1.0)
[2019-08-28 19:23] LABS: ALBUMIN 3.3 gm/dl (3.1-4.5); ALKALINE PHOSPHATASE 114 U/L (45-117); BUN 24 mg/dl (7-24); CHLORIDE 101 mmol/L (98-107); CREATININE 1.39 mg/dL (0.55-1.02); LIPASE 29 U/L (73-393); POTASSIUM 4.3 mmol/L (3.5-5.1); SGOT/AST 13 IU/L (3-35); SGPT/ALT 22 U/L (12-78); SODIUM 136 mmol/L (136-145); TOTAL PROTEIN 6.9 gm/dL (6.4-8.2)
[2019-08-28 19:24] LABS: TROPONIN I < 0.015 ng/ml (<0.045)
[2019-08-28 19:25] LABS: BACTERIA 1+; YEAST 4+
--- NOTE | 2019-08-28 19:26 | NUR ---
LACTIC ACID 2.3
--- NOTE | 2019-08-28 19:28 | NUR ---
CECILIA LIN NOTIFIED OF CRITICAL LAB LA 2.3
--- NOTE | 2019-08-28 19:37 | NUR ---
PT IN FOWLERS POSITION PT HAS NO REQUESTS OR COMPLAINTS AT THIS TIME BED IN LOWEST POSITION BED RAILS UP X 2 CALL LIGHT IN REACH
--- NOTE | 2019-08-28 20:18 | NUR ---
I UPDATED THE PATIENTS' DAUGHTER ON WHAT PROCEDURES WE DID AND THAT WE ARE JUST WAITING ON THE RESULTS. THE PATIENT DID VERBALIZE THAT I COULD UPDATE THE DAUTHER (FINA)
--- NOTE | 2019-08-28 21:10 | NUR ---
WHEN THE DAUGHTER WAS HERE SHE DID SHOW THIS NURSE AND PA. SERRANO A NODULE AT THE BASE OF THE PATIENTS LEFT BUTTOCK/CHEECK. THE DAUGHTER SAID IT HAS BEEN THERE FOR A WHILE AND THAT THE PATIENTS DOCTOR IS AWARE. THE SKIN IS INTACT WITH NO ERYTHEMA NOTED TO THE AREA. THE PATIENT DENIES PAIN WITH PALPATION
[2019-08-28 21:38] VITALS: BP 110/50
[2019-08-28 22:05] VITALS: BP 149/51
--- NOTE | 2019-08-28 22:09 | NUR ---
THE PATIENT DOES HAVE ESCORIATION TO THE CHRIS-AREA AND UNDER BILATERAL BREAST
[2019-08-28] MEDS ORDERED: COMPLETE SENIO1 EACH PO (22:24)
--- NOTE | 2019-08-29 01:14 | NUR ---
RADHA IN [facility] NOTIFIED OF CONSULT PER ORDER.
--- NOTE | 2019-08-29 04:11 | NUR ---
MERRY GARCIA [id number] Please refer to the physician's history and physical for past medical history, comorbid conditions, and allergies. Diagnosis: ACUTE KIDNEY INJURY,VULVOVAGINITIS DUE TO YEAST Carson Score: 17,AT RISK WOUND DESCRIPTIONS: Wound Number: 1 Location of the wound: left breast Type of wound: fungal Thickness: Partial Size: 12.5cm x 18.0cm x 0.1cm Tunneling: none Undermining: none Sinus Tract: none Presence of Exudate: Serous Amount: Light Color: Red Odor: Musty Periwound Skin Appearance: Normal Wound edges: approximated Pain (associated with wound): none at time of assessment How does patient state this happened? pt unable to state how this happened Wound Number: 2 Location of the wound: right breast Type of wound: fungal Thickness: Partial Size: 8.0cm x 11.0cm x 0.1cm Tunneling: none Undermining: none Sinus Tract: none Presence of Exudate: Serous Amount: Light Color: Red Odor: Musty Periwound Skin Appearance: Normal Wound edges: approximated Pain (associated with wound): none at time of assessment How does patient state this happened? pt unable to state how this happened Wound Number: 3 Location of the wound: intergluteal cleft Type of wound: IAD Thickness: Partial Size: 2.0cm x 0.2cm x 0.1cm Tunneling: none Undermining: none Sinus Tract: none Presence of Exudate: Serous Amount: Light Color: Red Odor: None Periwound Skin Appearance: Normal Wound edges: approximated Pain (associated with wound): tender at time of assessment How does patient state this happened? pt stated the area has been sore but was unsure that it was opened Bilateral groins red statelitte areas noted. Musty odor noted at time of assessment. No drainage at time of assessment. Bilateral heels boggy, red and blanchable at time of assessment. No open areas noted at time of assessment. No draiange at time of assessment. Surface the patient is resting on: Position Pro SKIN PREVENTION RECOMMENDATION: 1. Pressure redistribution support surface as appropriate 2. Elevate heels 3. Remove boots/TEDS every shift and reapply 4. Head of bed 30 degrees as tolerated 5. Assess nutrition and hydration 6. Manage moisture 7. Avoid the use of containment devices while in bed 8. Use absorptive products on surfaces limit layers of linens on bed 9. Turn and reposition every 1-2 hours in bed and every 1 hour in chair as tolerated 10. Weight shifts every 15 minutes while up in chair 11. Offloading with pillows or device to keep heels elevated off bed 12. Monitor skin at least every shift 13. Inspect under medical devices twice a day WOUND TREATMENT RECOMMENDATIONS: D/C nystain cream Continue nystatin powder every 8 hours. Cleanse intergluteal cleft with soap and water and apply calazime every shift and prn for soiling. Heel raiser pro boots to bilateral feet while in bed. Wheelchair cushion when oob.
[2019-08-29 06:16] LABS: BASO # 0.1 10*3/uL (0.0-0.1); BASO % 0.6 % (0.0-1.0); EOS # 0.2 10*3/uL (0.0-0.4); EOS % 1.7 % (1.0-4.0); HEMATOCRIT 43.3 % (37.0-47.0); LYMPH # 0.8 10*3/uL (1.3-4.4); LYMPH % 5.6 % (27.0-41.0); MEAN CELL VOLUME 91.9 fl (81.0-99.0); MEAN CORPUSCULAR HGB 28.2 pg (27.0-31.0); MEAN CORPUSCULAR HGB CONC 30.7 g/dl (33.0-37.0); MEAN PLATELET VOLUME 11.5 fl (9.6-12.3); MONO # 1.1 10*3/uL (0.1-1.0); MONO % 7.8 % (3.0-9.0); NEUT # 12.1 10*3/uL (2.3-7.9); NEUT % 83.7 % (47.0-73.0); PLATELET COUNT AUTOMATED 208 10*3/uL (130-400); RED BLOOD COUNT 4.71 10*6/uL (4.10-5.10); RED CELL DISTRI WIDTH 14.1 % (0-14.5); WHITE BLOOD COUNT 14.4 10*3/uL (4.8-10.8)
[2019-08-29 06:33] LABS: ACT PARTIAL THROMBO TIME 24.3 SECONDS (20.0-32.1)
[2019-08-29 06:35] LABS: ALBUMIN 3.4 gm/dl (3.1-4.5); CREATININE 1.16 mg/dL (0.55-1.02); PHOSPHOROUS 3.8 mg/dL (2.5-4.9)
[2019-08-29 06:42] LABS: FREE T4 1.13 ng/dl (0.76-1.46); THYROID STIM HORMONE (HS) 4.69 uIU/ml (0.358-4.75)
[2019-08-29 07:19] LABS: VITAMIN D, 25-HYDROXY 40.5 ng/mL (30-100)
[2019-08-29 08:00] VITALS: BP 98/69
--- NOTE | 2019-08-29 08:30 | NUR ---
case management attempted to contact patient's daughter regarding discharge plans. called daughters home phone, no answere, called daughters cell phone, left message, will await a return call from daughter
--- NOTE | 2019-08-29 09:10 | NUR ---
Percocet given per patient request for c/o pain in her legs and feet. Will monitor.
--- NOTE | 2019-08-29 09:15 | NUR ---
Occupational Therapy evaluation completed on four with full evaluation to follow. Recommend occupational therapy per plan of care and home with HH SN, OT, and PT upon discharge. Thank you for this referral. Valarie Gallagher OTR/L
--- NOTE | 2019-08-29 09:20 | NUR ---
Physical Therapy evaluation completed on with full evaluation to follow. Recommend physical therapy per plan of care and home with HH PT/O services upon discharge. Thank you for this referral. Alanis Baxter PT
--- NOTE | 2019-08-29 10:10 | NUR ---
Percocet effective. Patient asleep with respirations >12.
--- NOTE | 2019-08-29 11:06 | NUR ---
case management received a return call from patient's daughter Barbara. patient lives at home with her, she states patient is independent in adls and uses a walker or wheelchair for ambulation, patient has home oxygen at 4/l/min, portable tanks from [employer], she follows up with Dr Amparo peñaloza and uses [facility]. discussed with the daughter patient possibly going to a short term [facility] for 5 days of rehab prior to returning home, daughter declined, also discussed with her vNA and educated her on the services they provide. daughter stated she was familiar with home health, that patient previously had [facility] health. daughter stated she didn't feel patient needed any home services at this time, daughter stated she would contact case management if patient has any needs, case management will follow
[2019-08-29 12:00] VITALS: BP 130/51
[2019-08-29 16:00] VITALS: BP 170/80
--- NOTE | 2019-08-29 16:30 | NUR ---
Called with concerns of patient's increased drowsiness. Vitals and medications reviewed to monitor patient during dinner and reevaluate.
--- NOTE | 2019-08-29 18:05 | NUR ---
After turning and repositioning patient she became more alert and was a bit angry at being bothered. She said "yes, I know where I am!" I asked where and she said "with you1" I asked where I'm at and she said "with me." She said her name was Liya. Notified . Physician to follow up at bedside.
[2019-08-29 18:45] VITALS: BP 120/48
--- NOTE | 2019-08-29 18:51 | NUR ---
Notified of patient being transferred to [facility]. Awaiting orders for wound vac/removal dressing orders.
[2019-08-29 18:53] LABS: BASO # 0.1 10*3/uL (0.0-0.1); BASO % 0.8 % (0.0-1.0); EOS # 0.3 10*3/uL (0.0-0.4); EOS % 2.6 % (1.0-4.0); HEMATOCRIT 39.4 % (37.0-47.0); LYMPH # 1.3 10*3/uL (1.3-4.4); LYMPH % 12.3 % (27.0-41.0); MEAN CORPUSCULAR HGB 28.9 pg (27.0-31.0); MEAN CORPUSCULAR HGB CONC 30.7 g/dl (33.0-37.0); MEAN PLATELET VOLUME 10.6 fl (9.6-12.3); MONO # 0.8 10*3/uL (0.1-1.0); MONO % 7.5 % (3.0-9.0); NEUT # 8.3 10*3/uL (2.3-7.9); NEUT % 76.4 % (47.0-73.0); PLATELET COUNT AUTOMATED 191 10*3/uL (130-400); RED BLOOD COUNT 4.19 10*6/uL (4.10-5.10); RED CELL DISTRI WIDTH 14.2 % (0-14.5); WHITE BLOOD COUNT 10.9 10*3/uL (4.8-10.8)
[2019-08-29 19:12] LABS: ALKALINE PHOSPHATASE 102 U/L (45-117); BUN 18 mg/dl (7-24); CHLORIDE 104 mmol/L (98-107); CREATININE 1.04 mg/dL (0.55-1.02); POTASSIUM 4.5 mmol/L (3.5-5.1); SGOT/AST 8 IU/L (3-35); SGPT/ALT 24 U/L (12-78); SODIUM 138 mmol/L (136-145); TOTAL PROTEIN 6.7 gm/dL (6.4-8.2)
[2019-08-29 20:00] VITALS: BP 125/62
[2019-08-30] VITALS: BP 115/46
--- NOTE | 2019-08-30 01:58 | NUR ---
TYLENOL GIVEN PER PRN ORDER FOR TYMPANIC TEMP OF 100.5. SEE EMAR. REINFORCED USE OF CALL LIGHT
--- NOTE | 2019-08-30 03:00 | NUR ---
24 HR chart check completed.
[2019-08-30 06:30] LABS: BASO # 0.1 10*3/uL (0.0-0.1); BASO % 1.2 % (0.0-1.0); EOS # 0.3 10*3/uL (0.0-0.4); EOS % 3.5 % (1.0-4.0); HEMATOCRIT 36.9 % (37.0-47.0); LYMPH # 1.4 10*3/uL (1.3-4.4); MEAN CELL VOLUME 93.7 fl (81.0-99.0); MEAN CORPUSCULAR HGB 28.9 pg (27.0-31.0); MEAN CORPUSCULAR HGB CONC 30.9 g/dl (33.0-37.0); MEAN PLATELET VOLUME 11.3 fl (9.6-12.3); MONO # 0.7 10*3/uL (0.1-1.0); MONO % 8.1 % (3.0-9.0); NEUT # 5.6 10*3/uL (2.3-7.9); NEUT % 69.8 % (47.0-73.0); PLATELET COUNT AUTOMATED 179 10*3/uL (130-400); RED BLOOD COUNT 3.94 10*6/uL (4.10-5.10); RED CELL DISTRI WIDTH 14.3 % (0-14.5)
[2019-08-30 06:41] LABS: BUN 16 mg/dl (7-24); CHLORIDE 106 mmol/L (98-107); CREATININE 0.97 mg/dL (0.55-1.02); SODIUM 139 mmol/L (136-145)
[2019-08-30 08:00] VITALS: BP 105/51
--- NOTE | 2019-08-30 09:00 | NUR ---
patient will be returning home when medically stable, daughter stated she does not need any home services at this time
--- NOTE | 2019-08-30 09:15 | NUR ---
Priya Nuñez NP called for a brief history of patient. Per Priya she will make medication changes and order vitamin B level.
--- NOTE | 2019-08-30 10:04 | NUR ---
OT NOTE Attempted to see pt this A.M. for OT session and upon arrival pt was supine in bed. Pt would open her eyes which were "glassy" looking with tactile stimuli and then shut. Pt had increased aggitation and would respond "no" to all request. Pt's nurse and PROJECT RESERVOIR ENGINEER present for observation. No treatment provided at this time. Will continue with POC as able. PETROS Uribe
--- NOTE | 2019-08-30 10:13 | NUR ---
PO medications scanned patient verbally refused. Will attempt again. IV access lost, will reaccess.
--- NOTE | 2019-08-30 10:30 | NUR ---
PHYSICAL THERAPY Patient was supine in bed this am when approached for therapy visit and presented with "glassy eye" behaviour and became very agitated with Therapist when asked to participate. Patient verbally responded "NO" to all request, even refusing all meds as both Nurse / OT educational assistant teacher were present this morning. Patient remained in bed with all bed side rails rasised and bed alarm activated for safety. Will continue per POC as able. Caden Borden, CATHEAD OPERATOR
--- NOTE | 2019-08-30 11:57 | NUR ---
case management received a SNF order for patient, called patient's daughter regarding this, voicemail left for daughter to contact case managment
[2019-08-30 12:00] VITALS: BP 121/45
--- NOTE | 2019-08-30 12:14 | NUR ---
Updated Dr. Bull of patients behavior today. Patient is refusing medications and nursing care/treatment.
--- NOTE | 2019-08-30 12:19 | NUR ---
Dr. Drake called back and wants me to contact [facility] regarding patients behavior and condition.
--- NOTE | 2019-08-30 12:45 | NUR ---
Spoke with Zuleima on [facility]. She stated that is not on the unit and all calls are being handled by Priya. She said she notified Priya and she will be calling 4E back.
--- NOTE | 2019-08-30 12:55 | NUR ---
PHYSICAL THERAPY CO-SIGN I approve of the Physical Therapy notes written above. TREVA NUNEZ PT, DPT
--- NOTE | 2019-08-30 12:56 | NUR ---
Priya returned call. Patients behavior and combativness discussed. She is changing medications along with route. See new order.
--- NOTE | 2019-08-30 12:58 | NUR ---
OCCUPATIONAL THERAPY CO-SIGN I approve of the Occupational Therapy notes written above. Valarie Gallagher, OTR/L
--- NOTE | 2019-08-30 14:38 | NUR ---
Called to let him know that it was brought to my attention that patient has not had any urine output this shift. Bladder scanned her for 290ml. Patient refused med in applesauce and a new IV site.
--- NOTE | 2019-08-30 14:47 | NUR ---
FBI SPECIAL AGENT received notice the patient wanted to be referred to [facility] as a back up. FBI SPECIAL AGENT faxed new referral to [facility]. Patient requires acceptance and 3 night stay.
--- NOTE | 2019-08-30 14:53 | NUR ---
Ativan given to make patient more comfortable so IV access can be obtained for proper hydration. Will monitor.
--- NOTE | 2019-08-30 14:55 | NUR ---
Patient remained asleep when Ativan injection given. Semi cooperative with patient care, eyes were closed and refused a drink of water. When staff left the room for additional supplies the bed alarm went off. Patient ambulated to bedside commode. She was talkative and asked where she was. Oral care was given, she drank some water, morning meds were given, she asked for dinner and she agreed to new IV site after she eats dinner.
[2019-08-30 16:00] VITALS: BP 138/50
[2019-08-30 20:00] VITALS: BP 138/70
--- NOTE | 2019-08-30 21:50 | NUR ---
PATIENT MEDICATED WITH TYLENOL PER PRN ORDER FOR C/O JAW PAIN AND TEMP ELEVATION OF 99.1. SEE EMAR. REINFORCED USE OF CALL LIGHT.
[2019-08-31] VITALS: BP 121/48
--- NOTE | 2019-08-31 01:00 | NUR ---
PATIENTRESTING QUIETLY. NO FURTHER C/O VOICED.
--- NOTE | 2019-08-31 05:22 | NUR ---
24 HR chart check completed.
[2019-08-31 06:53] LABS: BUN 16 mg/dl (7-24); CHLORIDE 107 mmol/L (98-107); CREATININE 0.94 mg/dL (0.55-1.02); POTASSIUM 4.4 mmol/L (3.5-5.1); SODIUM 140 mmol/L (136-145)
[2019-08-31 08:00] VITALS: BP 137/50
[2019-08-31 08:15] LABS: BASO # 0.1 10*3/uL (0.0-0.1); BASO % 1.3 % (0.0-1.0); EOS # 0.4 10*3/uL (0.0-0.4); EOS % 7.5 % (1.0-4.0); HEMATOCRIT 37.6 % (37.0-47.0); LYMPH # 1.3 10*3/uL (1.3-4.4); LYMPH % 25.1 % (27.0-41.0); MEAN CELL VOLUME 94.2 fl (81.0-99.0); MEAN CORPUSCULAR HGB 28.8 pg (27.0-31.0); MEAN CORPUSCULAR HGB CONC 30.6 g/dl (33.0-37.0); MEAN PLATELET VOLUME 10.4 fl (9.6-12.3); MONO # 0.7 10*3/uL (0.1-1.0); MONO % 12.7 % (3.0-9.0); NEUT # 2.8 10*3/uL (2.3-7.9); PLATELET COUNT AUTOMATED 146 10*3/uL (130-400); RED BLOOD COUNT 3.99 10*6/uL (4.10-5.10); RED CELL DISTRI WIDTH 14.4 % (0-14.5); WHITE BLOOD COUNT 5.2 10*3/uL (4.8-10.8)
--- NOTE | 2019-08-31 11:26 | NUR ---
SPOKE WITH DR MARINELLI WHO STATES PT IS A DR CORONA PT, NEW CONSULT ORDERED.
[2019-08-31 12:00] VITALS: BP 127/67
[2019-08-31 16:00] VITALS: BP 151/48
[2019-08-31 20:00] VITALS: BP 138/64
--- NOTE | 2019-08-31 20:10 | NUR ---
PATIENT ASSESSED WITHOUT INCIDENT AT THIS TIME, PATIENT DENIES ANY NEEDS OR COMPLAINTS AT THIS TIME. A&O X3 AT THIS TIME, [place]. PLEASANT AND APPROPRIATE. WILL CONTINUE TO MONITOR.
--- NOTE | 2019-08-31 21:26 | NUR ---
24 HOUR CHART CHECK COMPLETED
[2019-09-01] VITALS: BP 122/48
[2019-09-01 05:58] LABS: BUN 11 mg/dl (7-24); CHLORIDE 106 mmol/L (98-107); CREATININE 0.84 mg/dL (0.55-1.02); POTASSIUM 3.8 mmol/L (3.5-5.1); SODIUM 141 mmol/L (136-145)
[2019-09-01 06:14] LABS: BASO # 0.1 10*3/uL (0.0-0.1); BASO % 1.2 % (0.0-1.0); EOS # 0.4 10*3/uL (0.0-0.4); EOS % 7.2 % (1.0-4.0); HEMATOCRIT 37.1 % (37.0-47.0); LYMPH # 1.4 10*3/uL (1.3-4.4); LYMPH % 24.4 % (27.0-41.0); MEAN CELL VOLUME 93.5 fl (81.0-99.0); MEAN CORPUSCULAR HGB 28.5 pg (27.0-31.0); MEAN CORPUSCULAR HGB CONC 30.5 g/dl (33.0-37.0); MEAN PLATELET VOLUME 11.2 fl (9.6-12.3); MONO # 0.6 10*3/uL (0.1-1.0); MONO % 10.8 % (3.0-9.0); NEUT # 3.3 10*3/uL (2.3-7.9); NEUT % 55.9 % (47.0-73.0); PLATELET COUNT AUTOMATED 168 10*3/uL (130-400); RED BLOOD COUNT 3.97 10*6/uL (4.10-5.10); RED CELL DISTRI WIDTH 14.1 % (0-14.5); WHITE BLOOD COUNT 5.8 10*3/uL (4.8-10.8)
[2019-09-01 08:00] VITALS: BP 148/45
--- NOTE | 2019-09-01 08:37 | NUR ---
PT RESTING IN BED/ NO DISTRESS NOTED WILL MONITOR
[2019-09-01 12:00] VITALS: BP 110/60
--- NOTE | 2019-09-01 13:00 | NUR ---
ATTEMPTED TO CALL BELEN FROM [facility] TO ASK ABOUT PT BEING TRANFERRED TO [facility] TODAY NO ANSWER
--- NOTE | 2019-09-01 14:30 | NUR ---
CONTINUED TO ATTEMPT CALLING BELEN FROM [facility], NO ANSWER DR CORONA NOTIFIED
[2019-09-01 16:00] VITALS: BP 104/57
[2019-09-01 20:00] VITALS: BP 150/51
--- NOTE | 2019-09-01 21:52 | NUR ---
PRN PERCOCET GIVEN AT THIS TIME FOR 6/10 PAIN IN PATIENT LEFT JAW AND NECK AREA. A&OX3. CALL LIGHT WITHIN REACH. WILL MONITOR.
--- NOTE | 2019-09-01 22:45 | NUR ---
PATIENT STATED HER JAW PAIN IS NOW A 4/10 AFTER PRN PERCOCET WAS GIVEN. A&O X3. CALL LIGHT WITHIN REACH.
--- NOTE | 2019-09-01 23:04 | NUR ---
PRN TYLENOL GIVEN AT THIS TIME FOR 5/10 LEFT JAW AND NECK PAIN. A&O X3, CALL LIGHT WITHIN REACH, WILL MONITOR.
--- NOTE | 2019-09-01 23:43 | NUR ---
24 HOUR CHART CHECK COMPLETED
[2019-09-02] VITALS: BP 108/49
--- NOTE | 2019-09-02 04:31 | NUR ---
Upon discharge recommend patient to follow up for wound care in outpatient setting continue current wound care orders at discharging facility.
[2019-09-02 06:04] LABS: BASO # 0.1 10*3/uL (0.0-0.1); BASO % 1.4 % (0.0-1.0); EOS # 0.5 10*3/uL (0.0-0.4); HEMATOCRIT 35.4 % (37.0-47.0); LYMPH # 1.5 10*3/uL (1.3-4.4); LYMPH % 26.2 % (27.0-41.0); MEAN CELL VOLUME 93.4 fl (81.0-99.0); MEAN CORPUSCULAR HGB 28.8 pg (27.0-31.0); MEAN CORPUSCULAR HGB CONC 30.8 g/dl (33.0-37.0); MONO # 0.7 10*3/uL (0.1-1.0); MONO % 12.1 % (3.0-9.0); NEUT # 2.9 10*3/uL (2.3-7.9); NEUT % 51.9 % (47.0-73.0); PLATELET COUNT AUTOMATED 187 10*3/uL (130-400); RED BLOOD COUNT 3.79 10*6/uL (4.10-5.10); RED CELL DISTRI WIDTH 14.1 % (0-14.5); WHITE BLOOD COUNT 5.6 10*3/uL (4.8-10.8)
[2019-09-02 06:21] LABS: BUN 10 mg/dl (7-24); CHLORIDE 105 mmol/L (98-107); CREATININE 0.96 mg/dL (0.55-1.02); POTASSIUM 3.6 mmol/L (3.5-5.1); SODIUM 141 mmol/L (136-145)
[2019-09-02 08:00] VITALS: BP 112/54
--- NOTE | 2019-09-02 08:06 | NUR ---
PT RESTING IN BED. NO DISTRESS NOTED. WILL MONITOR
--- NOTE | 2019-09-02 09:10 | NUR ---
DISH MACHINE OPERATOR faxed updatest to [facility]. Will need updated PT/OT notes. Still under review, pending acceptance.
--- NOTE | 2019-09-02 10:00 | NUR ---
PHYSICAL THERAPY Patient seen this am 1:1 for therapy visit and was was sitting semi reclined in bedside chair upon therapist arrival. Patient identified by name / and was alert, oriented and pleasant this morning. OT assistant fitness manager was also presnet for observation only this session as patient transfers sit to stand from low chair surface, MIN/CGA. Patient is still very [place], requiring v/c for proper hand placement, tolerating 3-4 minutes static stand, CGA, before completing SPT to [facility] with use of wh walker standing support, CGA x 1. Patient very cautious during pivot phase of transfer and returned to bedside chair with mild fatigue. Following brief seated rest, patient performed seated B LE therex, all planes, x 10 reps each without c/o, needing v/c to reach full AROM without c/o. Patient remained semi reclined with LE's elevated, call light, tray table, telephone and body alarm for safety. Will continue per POC as tolerated, total treatment time 23 minutes. Caden Borden, EQUIPMENT MAINTENANCE ENGINEER
--- NOTE | 2019-09-02 10:55 | NUR ---
OT NOTE Pt was seen this A.M. 1:1 for 25 minute OT session. Upon arrival pt was sitting upright in the recliner. Pt identified by name and and had no complaints at this time. Pt presented to therapy with continuous 3L-O2 via NC which she remained on throughout the entire session. Pt donned B socks with Scott while sitting. Sit to stand completed from chair level with Scott. Challenged pt's static standing tolerance needed for increased I in self care tasks and functional transfers, pt was able to tolerate aprox 3-4 minutes at a time before sitting due to fatigue. Standing pivot was then completed from the chair to the bedside commode with CGA and use of w/w for UE support. Pt transferred on/off bedside commode with CGA for safety, clothing management completed with Scott, and toilet hygiene completed with Scott. Standing pivot completed back to the chair with CGA and use of w/w. While sitting in the chair pt completed BUE towel exercises over all planes of motion for 1 X 10 to increase and restore UE strength. Pt was left sitting upright in the recliner with call light in hand, tray table in place, and body alarm activated for safety. Continue with POC as able. PETROS Uribe
--- NOTE | 2019-09-02 11:41 | NUR ---
Patient was denied [facility]. BLOCK STACKER reached out to patients daughter to see about a second choice and left message for return call.
[2019-09-02 12:00] VITALS: BP 142/50
--- NOTE | 2019-09-02 12:53 | NUR ---
STOCK RANCH SUPERVISOR attempted to reach patients daughter Barbara on [phone], female answered and stated wrong number. STOCK RANCH SUPERVISOR called and left on [phone] asking for a return call. STOCK RANCH SUPERVISOR also notifed Judicial Reporter Carol of the attempt to reach daughter since [facility]
--- NOTE | 2019-09-02 14:34 | NUR ---
AGRICULTURE RESEARCH DIRECTOR received call back from patients daughter. AGRICULTURE RESEARCH DIRECTOR explained [facility] denied the patient. Patients daughter stated the patient will return home with her. AGRICULTURE RESEARCH DIRECTOR offered Home Health, patients daughter declined. When medically stable patient can be discharged home.
[2019-09-02] MEDS ORDERED: OLANZAPINE ODT5 MG BC (14:55)
[2019-09-02] MEDS ORDERED: RIVASTIGMINE1 EACH T (14:55)
[2019-09-02] MEDS ORDERED: NAMENDA-5 PO (14:55)
[2019-09-02] MEDS ORDERED: DOXYCYCLINE100 M3 PO (15:00)
--- NOTE | 2019-09-02 16:00 | NUR ---
ATTEMPTED TO CALL PT DTR, SON IN LAW ANSWERED. STATED THAT HIS ( PT DTR ) IS AT WORK RIGHT NOW AND WOULD ME BACK LATER
--- NOTE | 2019-09-02 17:58 | NUR ---
Discharge instructions reviewed with patient/family. Patient receptive and verbalizes understanding. Follow-up care arranged. Written instructions given to patient/family. SALUD NAZARIO
--- NOTE | 2019-09-03 08:00 | NUR ---
PHYSICAL THERAPY CO-SIGN I approve of the Physical Therapy notes written above. TREVA NUNEZ, PT,DPT
--- NOTE | 2019-09-03 08:22 | NUR ---
OCCUPATIONAL THERAPY CO-SIGN I approve of the Occupational Therapy notes written above. ROMINA OCONNELL, OTR/L
== END 2019-09-02 17:58 | disposition home or self-care (01) | DRG 871 ==
LOC: ED 18:01 → EDHOLD 20:35 → 4E 20:35
PROVIDERS: Family Medicine; Hospitalist; Internal Medicine; Physician Assistant; ADMIT Internal Medicine
DX: A41.9 Sepsis, unspecified organism (principal); G93.41 Metabolic encephalopathy; N17.0 Acute kidney failure with tubular necrosis; L03.115 Cellulitis of right lower limb; E87.2 Acidosis; F32.3 Major depressive disorder, single episode, severe with psychotic features; J96.11 Chronic respiratory failure with hypoxia; F02.81 Dementia in other diseases classified elsewhere, unspecified severity, with behavioral disturbance; N39.0 Urinary tract infection, site not specified; E86.0 Dehydration; B37.3 Candidiasis of vulva and vagina; B37.2 Candidiasis of skin and nail; J44.9 Chronic obstructive pulmonary disease, unspecified; F41.1 Generalized anxiety disorder; N18.3 Chronic kidney disease, stage 3 (moderate); G30.9 Alzheimer's disease, unspecified; E11.65 Type 2 diabetes mellitus with hyperglycemia; E11.22 Type 2 diabetes mellitus with diabetic chronic kidney disease; G89.29 Other chronic pain; I12.9 Hypertensive chronic kidney disease with stage 1 through stage 4 chronic kidney disease, or unspecified chronic kidney disease; G47.33 Obstructive sleep apnea (adult) (pediatric); M79.7 Fibromyalgia; Z66 Do not resuscitate; Z51.5 Encounter for palliative care; I87.2 Venous insufficiency (chronic) (peripheral); E66.01 Morbid (severe) obesity due to excess calories; Z68.37 Body mass index [BMI] 37.0-37.9, adult; Z99.81 Dependence on supplemental oxygen; Z79.82 Long term (current) use of aspirin; Z79.899 Other long term (current) drug therapy; Z79.4 Long term (current) use of insulin; Z90.49 Acquired absence of other specified parts of digestive tract; Z87.891 Personal history of nicotine dependence; Z82.49 Family history of ischemic heart disease and other diseases of the circulatory system; Z87.440 Personal history of urinary (tract) infections